=== PATIENT | female | born 1945 | race Caucasian/White ===

== ENCOUNTER 2018-10-03 14:55 | Inpatient (IN) ==
[2018-10-03] MEDS ORDERED: methylPREDNISolone SOD SUC 125 MG/2 ML VIAL IV STA (15:31)
[2018-10-03] MEDS ORDERED: ALBUTEROL 2.5 MG/3 ML NEB RESP TX STA (15:32)
[2018-10-03 15:43] LABS: Basophils % 0.3 % (0.0-0.8); Eosinophils # 0.1 10*3/uL (0.0-0.87); Eosinophils % 2.2 % (0.00-10.9); Hematocrit 37.6 VOL% (35.7-47.0); Hemoglobin 12.5 GM/DL (12.0-16.0); Immature Granulocytes Absolute 0.06 #; Lymphocytes # 1.2 10*3/uL (1.4-4.0); Lymphocytes % 20.6 % (21.3-54.2); Mean Corpuscular HGB Conc 33.2 GM/DL (32-36); Mean Corpuscular Hemoglobin 29 PG (27-34); Mean Corpuscular Volume 87.4 FL (87-102); Mean Platelet Volume 9.6 FL (9.6-12.0); Monocytes # 0.5 10*3/uL (0.11-0.8); Monocytes % 9.2 % (1.7-12.7); Neutrophils # 3.9 10*3/uL (1.4-7.4); Neutrophils % 66.7 % (38.7-73.9); Platelet Count 330 T/CUMM (130-400); Red Cell Distribution Width 15.9 % (9.3-17.3); White Blood Count 5.8 T/CUMM (4-12)
[2018-10-03 15:55] LABS: Bilirubin,Total 0.4 MG/DL (0.2-1.0); Calcium 8.4 MG/DL (8.5-10.1); Osmolality,Calculated 280.1 MOS/KG (273-304); Potassium 3.3 MMOL/L (3.5-5.1); Total Protein 6.3 G/DL (6.4-8.3)
[2018-10-03 16:17] LABS: Apearance,Urine CLEAR (Clear); Bilirubin,Urine Negative (Negative); Blood, Urine Negative (Negative); Glucose,Urine (UA) Negative (Negative); Ketones,Urine 20 mg/dL (Negative); Mucus,Urine Occasional /LPF (Occasional); Nitrite,Urine Negative (Negative); Protein,Urine 30 MG/DL; Squamous Epithelial Cell,Urine Occasional /HPF (0-10); Urine Color Yellow (Yellow); Urine Specific Gravity 1.016 (1.001-1.035); WBC,Urine 1 /HPF (0-6)
[2018-10-03 16:27] LABS: ABG Base Excess 3.4 MMOL/L (-2.5-2.5); ABG HCO3 27.5 MMOL/L (20-26); ABG PCO2 44.1 MM HG (35-48); ABG PH 7.418 (7.35-7.45); ABG TCO2 25.1 MMOL/L (23-27); Allen Test Positive
[2018-10-03] MEDS ORDERED: MEROPENEM 1,000 MG in SODIUM CHLORIDE 0.9% 100 ML IV STA (16:37)
[2018-10-03] MEDS ORDERED: VANCOMYCIN INJ 1,000 MG in SODIUM CHLORIDE 0.9% 250 ML IV STA (16:55)
[2018-10-03] MEDS ORDERED: ACETAMINOPHEN 325 MG TABLET PO PRN (17:21)
[2018-10-03] MEDS ORDERED: ONDANSETRON 4 MG/2 ML VIAL IV PRN (17:21)
[2018-10-03] MEDS ORDERED: GLUCAGON 1 MG VIAL IM PRN (18:21)
[2018-10-03] MEDS ORDERED: NITROGLYCERIN SL 0.4 MG TABLET SL PRN (18:31)
[2018-10-03] MEDS: POTASSIUM CHLORIDE 20 MEQ TABLET PO SCH ×2 (19:00→21:36)
[2018-10-03] MEDS: ALBUTEROL/IPRATROPIUM 3 ML NEB RESP TX SCH (19:16)
[2018-10-03] MEDS: BUDESONIDE 0.5 MG/2 ML NEB RESP TX SCH (19:17)
[2018-10-03] MEDS: FORMOTEROL 20 MCG/2 ML NEB RESP TX SCH (19:17)
[2018-10-03] MEDS: SODIUM CHLORIDE 0.9% 1,000 ML IV SCH (19:36)
[2018-10-03] MEDS: INSULIN LISPRO 100 UNIT/ML SUBCUT SCH (20:03)
[2018-10-03] MEDS: INSULIN GLARGINE 100 UNIT/ML SUBCUT SCH (20:03)
[2018-10-03] MEDS: CLOTRIMAZOLE/BETAMETHASONE CREAM 15 GM TUBE TOP SCH (20:12)
[2018-10-03] MEDS: OLOPATADINE 0.1% OPH SOLN 5 ML BOTTLE BOTH EYES SCH (20:12)
[2018-10-03] MEDS: LEVOFLOXACIN INJ 750 MG in PREMIX 1 EACH IV SCH (20:12)
[2018-10-03] MEDS: ALBUTEROL/IPRATROPIUM 3 ML NEB RESP TX PRN (23:12)
[2018-10-04] MEDS: oxyCODONE IR 5 MG TABLET PO SCH ×5 (00:11→17:01)
[2018-10-04] MEDS: POTASSIUM CHLORIDE 20 MEQ TABLET PO SCH ×2 (03:15→08:51)
[2018-10-04] MEDS: VANCOMYCIN INJ 1,500 MG in SODIUM CHLORIDE 0.9% 500 ML IV SCH ×2 (03:15→16:25)
[2018-10-04] MEDS ORDERED: VECURONIUM 10 MG VIAL IV ONE ×2 (03:55→04:06)
[2018-10-04] MEDS ORDERED: ETOMIDATE 20 MG/10 ML VIAL IV ONE ×2 (03:56→04:04)
[2018-10-04] MEDS ORDERED: SUCCINYLCHOLINE 200 MG/10 ML VIAL ONE (03:56)
[2018-10-04 03:59] LABS: Hematocrit 37.7 VOL% (35.7-47.0); Hemoglobin 12.1 GM/DL (12.0-16.0); Immature Granulocytes % 1.2 %; Immature Granulocytes Absolute 0.05 #; Lymphocytes # 0.3 10*3/uL (1.4-4.0); Lymphocytes % 7.6 % (21.3-54.2); Mean Corpuscular HGB Conc 32.1 GM/DL (32-36); Mean Corpuscular Hemoglobin 29 PG (27-34); Mean Corpuscular Volume 89.3 FL (87-102); Mean Platelet Volume 9.3 FL (9.6-12.0); Monocytes # 0.3 10*3/uL (0.11-0.8); Monocytes % 7.4 % (1.7-12.7); Neutrophils # 3.5 10*3/uL (1.4-7.4); Neutrophils % 83.8 % (38.7-73.9); Platelet Count 268 T/CUMM (130-400); Red Blood Count 4.22 MC/CUMM (3.8-5.5); Red Cell Distribution Width 15.8 % (9.3-17.3); White Blood Count 4.2 T/CUMM (4-12)
[2018-10-04 04:16] LABS: INR 0.9; PT Patient Result 10.1 SECS
[2018-10-04] MEDS ORDERED: PROPOFOL 1,000 MG/100 ML BOTTLE IV ONE (04:16)
[2018-10-04 04:22] LABS: Calcium 8.6 MG/DL (8.5-10.1); Osmolality,Calculated 288.3 MOS/KG (273-304); Potassium 4.6 MMOL/L (3.5-5.1)
[2018-10-04 04:34] LABS: Troponin I 0.416 NG/ML (0.00-0.045)
[2018-10-04] MEDS: SODIUM CHLORIDE 0.9% 1,000 ML IV SCH ×2 (04:38→14:36)
[2018-10-04] MEDS: PROPOFOL 1,000 MG/100 ML BOTTLE IV SCH ×4 (04:41→21:10)
[2018-10-04 04:56] LABS: Pt O2 Delivery Device Ventilator
[2018-10-04] MEDS: MEROPENEM 1,000 MG in SODIUM CHLORIDE 0.9% 100 ML IV SCH ×2 (05:47→16:25)
[2018-10-04 06:13] LABS: ABG Base Excess -3.1 MMOL/L (-2.5-2.5); ABG HCO3 21.8 MMOL/L (20-26); ABG Oxygen Saturation 97.5 % (95-100); ABG PH 7.176 (7.35-7.45); ABG TCO2 25.5 MMOL/L (23-27)
[2018-10-04 06:14] LABS: ABG PCO2 76.7 MM HG (35-48)
[2018-10-04 07:30] LABS: Pt O2 Delivery Device Ventilator
[2018-10-04 07:32] LABS: ABG Base Excess -4.3 MMOL/L (-2.5-2.5); ABG HCO3 20.8 MMOL/L (20-26); ABG Oxygen Saturation 95.1 % (95-100); ABG PO2 92.3 MM HG (80-95); ABG TCO2 23.5 MMOL/L (23-27)
[2018-10-04] MEDS: BUDESONIDE 0.5 MG/2 ML NEB RESP TX SCH ×2 (07:40→18:57)
[2018-10-04] MEDS: ALBUTEROL/IPRATROPIUM 3 ML NEB RESP TX SCH ×4 (07:40→18:57)
[2018-10-04] MEDS: FORMOTEROL 20 MCG/2 ML NEB RESP TX SCH ×2 (07:40→18:57)
[2018-10-04 07:53] LABS: ABG PH 7.189 (7.35-7.45)
[2018-10-04 08:43] LABS: ABG Base Excess -3.7 MMOL/L (-2.5-2.5); ABG HCO3 21.4 MMOL/L (20-26); ABG Oxygen Saturation 98.8 % (95-100); ABG PCO2 60.5 MM HG (35-48); ABG TCO2 22.8 MMOL/L (23-27); Pt O2 Delivery Device Ventilator
[2018-10-04] MEDS: INSULIN LISPRO 100 UNIT/ML SUBCUT SCH ×4 (08:47→23:16)
[2018-10-04] MEDS: CLOTRIMAZOLE/BETAMETHASONE CREAM 15 GM TUBE TOP SCH ×2 (08:50→20:45)
[2018-10-04] MEDS: OLOPATADINE 0.1% OPH SOLN 5 ML BOTTLE BOTH EYES SCH ×2 (08:50→20:45)
[2018-10-04] MEDS: INSULIN GLARGINE 100 UNIT/ML SUBCUT SCH ×2 (08:51→20:43)
[2018-10-04] MEDS: PANTOPRAZOLE 40 MG TABLET PO SCH (08:51)
[2018-10-04] MEDS: CALCIUM (CARBONATE)/VITAMIN D 600 MG-400 UNIT TABLET PO SCH (08:51)
[2018-10-04] MEDS: ASPIRIN EC 81 MG TABLET PO SCH (08:51)
[2018-10-04] MEDS: methylPREDNISolone SOD SUC 40 MG/1 ML VIAL IV SCH ×2 (12:33→22:32)
[2018-10-04] MEDS: LEVOFLOXACIN INJ 750 MG in PREMIX 1 EACH IV SCH (20:44)
[2018-10-05] MEDS: oxyCODONE IR 5 MG TABLET PO SCH ×2 (00:53→06:25)
[2018-10-05] MEDS: SODIUM CHLORIDE 0.9% 1,000 ML IV SCH ×2 (00:53→17:42)
[2018-10-05] MEDS: PROPOFOL 1,000 MG/100 ML BOTTLE IV SCH ×7 (03:22→23:05)
[2018-10-05] MEDS: VANCOMYCIN INJ 1,500 MG in SODIUM CHLORIDE 0.9% 500 ML IV SCH (03:25)
[2018-10-05 03:57] LABS: ABG Base Excess -0.9 MMOL/L (-2.5-2.5); ABG HCO3 23.7 MMOL/L (20-26); ABG Oxygen Saturation 98.9 % (95-100); ABG PCO2 47.6 MM HG (35-48); ABG PH 7.335 (7.35-7.45); ABG TCO2 22.7 MMOL/L (23-27); Allen Test Positive; Pt O2 Delivery Device Ventilator
[2018-10-05 04:34] LABS: Basophils % 0.2 % (0.0-0.8); Hematocrit 37.2 VOL% (35.7-47.0); Hemoglobin 11.4 GM/DL (12.0-16.0); Immature Granulocytes % 1.3 %; Immature Granulocytes Absolute 0.07 #; Lymphocytes # 0.4 10*3/uL (1.4-4.0); Lymphocytes % 7.4 % (21.3-54.2); Mean Corpuscular HGB Conc 30.6 GM/DL (32-36); Mean Corpuscular Hemoglobin 28 PG (27-34); Mean Corpuscular Volume 92.1 FL (87-102); Monocytes # 0.4 10*3/uL (0.11-0.8); Monocytes % 8.3 % (1.7-12.7); Neutrophils # 4.4 10*3/uL (1.4-7.4); Neutrophils % 82.8 % (38.7-73.9); Platelet Count 232 T/CUMM (130-400); Red Blood Count 4.04 MC/CUMM (3.8-5.5); Red Cell Distribution Width 16.6 % (9.3-17.3); White Blood Count 5.3 T/CUMM (4-12)
[2018-10-05 04:49] LABS: Calcium 8.5 MG/DL (8.5-10.1); Osmolality,Calculated 295.8 MOS/KG (273-304); Potassium 4.7 MMOL/L (3.5-5.1)
[2018-10-05] MEDS: INSULIN LISPRO 100 UNIT/ML SUBCUT SCH ×3 (05:47→18:23)
[2018-10-05] MEDS: MEROPENEM 1,000 MG in SODIUM CHLORIDE 0.9% 100 ML IV SCH (05:57)
[2018-10-05] MEDS: ALBUTEROL/IPRATROPIUM 3 ML NEB RESP TX SCH ×4 (07:10→19:19)
[2018-10-05] MEDS: BUDESONIDE 0.5 MG/2 ML NEB RESP TX SCH ×2 (07:10→19:20)
[2018-10-05] MEDS: FORMOTEROL 20 MCG/2 ML NEB RESP TX SCH ×2 (07:10→19:19)
[2018-10-05] MEDS: POTASSIUM CHLORIDE 20 MEQ TABLET PO SCH (08:03)
[2018-10-05] MEDS: INSULIN GLARGINE 100 UNIT/ML SUBCUT SCH (08:03)
[2018-10-05] MEDS: CALCIUM (CARBONATE)/VITAMIN D 600 MG-400 UNIT TABLET PO SCH (08:03)
[2018-10-05] MEDS: CLOTRIMAZOLE/BETAMETHASONE CREAM 15 GM TUBE TOP SCH ×2 (08:07→21:08)
[2018-10-05] MEDS: OLOPATADINE 0.1% OPH SOLN 5 ML BOTTLE BOTH EYES SCH ×2 (08:07→23:05)
[2018-10-05] MEDS: ASPIRIN EC 81 MG TABLET PO SCH (09:14)
[2018-10-05] MEDS: PANTOPRAZOLE 40 MG TABLET PO SCH (09:14)
[2018-10-05] MEDS: HYDROmorphone 2 MG/1 ML VIAL IV PRN (09:56)
[2018-10-05] MEDS: methylPREDNISolone SOD SUC 40 MG/1 ML VIAL IV SCH ×2 (11:27→23:30)
[2018-10-05] MEDS ORDERED: INSULIN GLARGINE 100 UNIT/ML SUBCUT SCH ×2 (17:25→17:31)
[2018-10-05] MEDS: FUROSEMIDE 40 MG/4 ML VIAL IV SCH (18:00)
[2018-10-05] MEDS: LEVOFLOXACIN INJ 750 MG in PREMIX 1 EACH IV SCH (21:07)
[2018-10-06] MEDS ORDERED: VANCOMYCIN INJ 1,500 MG in SODIUM CHLORIDE 0.9% 500 ML IV SCH
[2018-10-06] MEDS: INSULIN LISPRO 100 UNIT/ML SUBCUT SCH ×4 (00:03→18:36)
[2018-10-06] MEDS: PROPOFOL 1,000 MG/100 ML BOTTLE IV SCH ×7 (02:51→21:19)
[2018-10-06 04:38] LABS: ABG Base Excess 1.2 MMOL/L (-2.5-2.5); ABG HCO3 27.3 MMOL/L (20-26); ABG Oxygen Saturation 98.5 % (95-100); ABG PCO2 49.8 MM HG (35-48); ABG PH 7.357 (7.35-7.45); ABG PO2 143.4 MM HG (80-95); ABG TCO2 28.8 MMOL/L (23-27); Allen Test Positive; Pt O2 Delivery Device Ventilator
[2018-10-06 05:05] LABS: Calcium 8.4 MG/DL (8.5-10.1); Osmolality,Calculated 305.7 MOS/KG (273-304); Potassium 4.6 MMOL/L (3.5-5.1)
[2018-10-06 05:29] LABS: Basophils % 0.1 % (0.0-0.8); Hematocrit 37.2 VOL% (35.7-47.0); Hemoglobin 11.7 GM/DL (12.0-16.0); Immature Granulocytes % 1.5 %; Immature Granulocytes Absolute 0.12 #; Lymphocytes # 0.3 10*3/uL (1.4-4.0); Lymphocytes % 4.2 % (21.3-54.2); Mean Corpuscular HGB Conc 31.5 GM/DL (32-36); Mean Corpuscular Hemoglobin 29 PG (27-34); Mean Corpuscular Volume 92.1 FL (87-102); Monocytes # 0.7 10*3/uL (0.11-0.8); Monocytes % 9.1 % (1.7-12.7); NRBC # 0.02 10*3/uL; Neutrophils % 85.1 % (38.7-73.9); Platelet Count 298 T/CUMM (130-400); Red Blood Count 4.04 MC/CUMM (3.8-5.5); Red Cell Distribution Width 16.8 % (9.3-17.3); White Blood Count 8.2 T/CUMM (4-12)
[2018-10-06 05:48] LABS: Lymphocytes 9 % (20-55); Platelet Estimate Normal; Segmented Neutrophils 88 % (50-85); Total Cells Counted 100
[2018-10-06 05:49] LABS: Polychromasia Few
[2018-10-06] MEDS: ALBUTEROL/IPRATROPIUM 3 ML NEB RESP TX SCH ×4 (07:24→18:59)
[2018-10-06] MEDS: BUDESONIDE 0.5 MG/2 ML NEB RESP TX SCH ×2 (07:24→19:00)
[2018-10-06] MEDS: FORMOTEROL 20 MCG/2 ML NEB RESP TX SCH ×2 (07:34→18:59)
[2018-10-06] MEDS: FUROSEMIDE 40 MG/4 ML VIAL IV SCH ×2 (09:26→16:06)
[2018-10-06] MEDS: ASPIRIN CHEW 81 MG TABLET PO SCH (09:27)
[2018-10-06] MEDS: CALCIUM (CARBONATE)/VITAMIN D 600 MG-400 UNIT TABLET PO SCH (09:27)
[2018-10-06] MEDS: LANSOPRAZOLE ODT 30 MG TABLET NG SCH (09:27)
[2018-10-06] MEDS: CLOTRIMAZOLE/BETAMETHASONE CREAM 15 GM TUBE TOP SCH ×2 (09:27→21:45)
[2018-10-06] MEDS: OLOPATADINE 0.1% OPH SOLN 5 ML BOTTLE BOTH EYES SCH ×2 (09:27→22:03)
[2018-10-06] MEDS: POTASSIUM CHLORIDE 20 MEQ TABLET PO SCH (09:27)
[2018-10-06] MEDS: methylPREDNISolone SOD SUC 40 MG/1 ML VIAL IV SCH ×2 (11:13→23:17)
[2018-10-06] MEDS: BISACODYL 10 MG SUPP RECTAL SCH (11:13)
[2018-10-06] MEDS ORDERED: INSULIN GLARGINE 100 UNIT/ML SUBCUT SCH ×2 (12:28→12:30)
[2018-10-06] MEDS: METOCLOPRAMIDE 10 MG/2 ML VIAL IV SCH ×2 (12:46→18:36)
[2018-10-06] MEDS: LEVOFLOXACIN INJ 750 MG in PREMIX 1 EACH IV SCH (21:44)
[2018-10-07] MEDS: INSULIN LISPRO 100 UNIT/ML SUBCUT SCH ×4 (00:09→18:15)
[2018-10-07] MEDS: METOCLOPRAMIDE 10 MG/2 ML VIAL IV SCH ×4 (00:10→18:15)
[2018-10-07] MEDS: PROPOFOL 1,000 MG/100 ML BOTTLE IV SCH ×6 (01:17→21:56)
[2018-10-07 03:22] LABS: Allen Test Positive; Pt O2 Delivery Device Ventilator
[2018-10-07 03:23] LABS: ABG Base Excess 9.1 MMOL/L (-2.5-2.5); ABG HCO3 32.9 MMOL/L (20-26); ABG Oxygen Saturation 99.4 % (95-100); ABG PCO2 49.6 MM HG (35-48); ABG PH 7.452 (7.35-7.45); ABG TCO2 30.6 MMOL/L (23-27)
[2018-10-07 05:21] LABS: Basophils % 0.3 % (0.0-0.8); Eosinophils % 0.1 % (0.00-10.9); Hematocrit 36.7 VOL% (35.7-47.0); Hemoglobin 11.4 GM/DL (12.0-16.0); Immature Granulocytes % 2.3 %; Immature Granulocytes Absolute 0.17 #; Lymphocytes # 0.4 10*3/uL (1.4-4.0); Lymphocytes % 5.3 % (21.3-54.2); Mean Corpuscular HGB Conc 31.1 GM/DL (32-36); Mean Corpuscular Hemoglobin 28 PG (27-34); Mean Corpuscular Volume 90.8 FL (87-102); Mean Platelet Volume 10.1 FL (9.6-12.0); Monocytes # 0.5 10*3/uL (0.11-0.8); Neutrophils # 6.2 10*3/uL (1.4-7.4); Platelet Count 278 T/CUMM (130-400); Red Blood Count 4.04 MC/CUMM (3.8-5.5); Red Cell Distribution Width 16.6 % (9.3-17.3); White Blood Count 7.3 T/CUMM (4-12)
[2018-10-07 05:52] LABS: Calcium 8.7 MG/DL (8.5-10.1); Osmolality,Calculated 302.7 MOS/KG (273-304); Potassium 4.8 MMOL/L (3.5-5.1)
[2018-10-07] MEDS: BUDESONIDE 0.5 MG/2 ML NEB RESP TX SCH ×2 (07:01→20:19)
[2018-10-07] MEDS: FORMOTEROL 20 MCG/2 ML NEB RESP TX SCH ×2 (07:01→20:18)
[2018-10-07] MEDS: ALBUTEROL/IPRATROPIUM 3 ML NEB RESP TX SCH ×4 (07:02→20:19)
[2018-10-07] MEDS ORDERED: FUROSEMIDE 20 MG/2 ML VIAL ONE (07:27)
[2018-10-07] MEDS: FUROSEMIDE 40 MG/4 ML VIAL IV SCH (07:31)
[2018-10-07] MEDS: LANSOPRAZOLE ODT 30 MG TABLET NG SCH (09:27)
[2018-10-07] MEDS: ASPIRIN CHEW 81 MG TABLET PO SCH (09:27)
[2018-10-07] MEDS: CALCIUM (CARBONATE)/VITAMIN D 600 MG-400 UNIT TABLET PO SCH (09:27)
[2018-10-07] MEDS: BISACODYL 10 MG SUPP RECTAL SCH (09:28)
[2018-10-07] MEDS: POTASSIUM CHLORIDE 20 MEQ TABLET PO SCH (09:28)
[2018-10-07] MEDS: CLOTRIMAZOLE/BETAMETHASONE CREAM 15 GM TUBE TOP SCH ×2 (09:28→20:31)
[2018-10-07] MEDS: OLOPATADINE 0.1% OPH SOLN 5 ML BOTTLE BOTH EYES SCH ×2 (09:28→20:31)
[2018-10-07] MEDS: POTASSIUM CHLORIDE 20 MEQ/15 ML UDCUP PO SCH (09:29)
[2018-10-07] MEDS: methylPREDNISolone SOD SUC 40 MG/1 ML VIAL IV SCH ×2 (12:01→22:49)
[2018-10-07] MEDS: FUROSEMIDE 20 MG/2 ML VIAL IV SCH (15:55)
[2018-10-07] MEDS: INSULIN GLARGINE 100 UNIT/ML SUBCUT SCH (20:30)
[2018-10-07] MEDS: LEVOFLOXACIN INJ 750 MG in PREMIX 1 EACH IV SCH (20:31)
[2018-10-08] MEDS: INSULIN LISPRO 100 UNIT/ML SUBCUT SCH ×4 (00:28→18:14)
[2018-10-08] MEDS: METOCLOPRAMIDE 10 MG/2 ML VIAL IV SCH ×4 (00:29→17:05)
[2018-10-08] MEDS: PROPOFOL 1,000 MG/100 ML BOTTLE IV SCH ×6 (02:34→20:22)
[2018-10-08 04:14] LABS: ABG Base Excess 12.5 MMOL/L (-2.5-2.5); ABG HCO3 36.3 MMOL/L (20-26); ABG PCO2 58.6 MM HG (35-48); ABG PH 7.437 (7.35-7.45); ABG TCO2 34.6 MMOL/L (23-27); Pt O2 Delivery Device Ventilator
[2018-10-08 05:36] LABS: Basophils % 0.2 % (0.0-0.8); Eosinophils # 0.1 10*3/uL (0.0-0.87); Eosinophils % 0.7 % (0.00-10.9); Hematocrit 40.1 VOL% (35.7-47.0); Hemoglobin 12.3 GM/DL (12.0-16.0); Immature Granulocytes % 2.4 %; Immature Granulocytes Absolute 0.21 #; Lymphocytes # 0.4 10*3/uL (1.4-4.0); Lymphocytes % 4.6 % (21.3-54.2); Mean Corpuscular HGB Conc 30.7 GM/DL (32-36); Mean Corpuscular Hemoglobin 29 PG (27-34); Mean Platelet Volume 10.2 FL (9.6-12.0); Monocytes # 0.5 10*3/uL (0.11-0.8); Monocytes % 5.8 % (1.7-12.7); Neutrophils # 7.7 10*3/uL (1.4-7.4); Neutrophils % 86.3 % (38.7-73.9); Platelet Count 278 T/CUMM (130-400); Red Blood Count 4.31 MC/CUMM (3.8-5.5); Red Cell Distribution Width 16.5 % (9.3-17.3); White Blood Count 8.9 T/CUMM (4-12)
[2018-10-08 05:38] LABS: Calcium 8.7 MG/DL (8.5-10.1); Osmolality,Calculated 300.7 MOS/KG (273-304); Potassium 4.9 MMOL/L (3.5-5.1)
[2018-10-08 06:47] LABS: Anisocytosis Slight; Band Neutrophils 2 % (0-10); Eosinophils 1 % (0-10); Lymphocytes 4 % (20-55); Macrocytosis Slight; Platelet Estimate Normal; Segmented Neutrophils 90 % (50-85); Total Cells Counted 100
[2018-10-08] MEDS: ALBUTEROL/IPRATROPIUM 3 ML NEB RESP TX SCH ×4 (07:58→20:32)
[2018-10-08] MEDS: BUDESONIDE 0.5 MG/2 ML NEB RESP TX SCH ×2 (07:58→20:34)
[2018-10-08] MEDS: FORMOTEROL 20 MCG/2 ML NEB RESP TX SCH ×2 (07:58→20:34)
[2018-10-08] MEDS: ASPIRIN CHEW 81 MG TABLET PO SCH (09:05)
[2018-10-08] MEDS: INSULIN GLARGINE 100 UNIT/ML SUBCUT SCH ×2 (09:05→20:19)
[2018-10-08] MEDS: CALCIUM (CARBONATE)/VITAMIN D 600 MG-400 UNIT TABLET PO SCH (09:05)
[2018-10-08] MEDS: LANSOPRAZOLE ODT 30 MG TABLET NG SCH (09:05)
[2018-10-08] MEDS: FUROSEMIDE 20 MG/2 ML VIAL IV SCH (09:06)
[2018-10-08] MEDS: BISACODYL 10 MG SUPP RECTAL SCH (09:06)
[2018-10-08] MEDS: HYDROmorphone 2 MG/1 ML VIAL IV PRN (09:09)
[2018-10-08] MEDS: CLOTRIMAZOLE/BETAMETHASONE CREAM 15 GM TUBE TOP SCH ×2 (09:10→20:20)
[2018-10-08] MEDS: OLOPATADINE 0.1% OPH SOLN 5 ML BOTTLE BOTH EYES SCH ×2 (09:10→20:20)
[2018-10-08] MEDS: POTASSIUM CHLORIDE 20 MEQ/15 ML UDCUP PO SCH (09:18)
[2018-10-08] MEDS ORDERED: MAGNESIUM CITRATE 300 ML BOTTLE PO ONE (09:23)
[2018-10-08] MEDS: methylPREDNISolone SOD SUC 40 MG/1 ML VIAL IV SCH (12:08)
[2018-10-08] MEDS: ENOXAPARIN 40 MG/0.4 ML SYRINGE SUBCUT SCH (15:57)
[2018-10-08] MEDS: ACYCLOVIR INJ 500 MG in SODIUM CHLORIDE 0.9% 100 ML IV SCH (17:05)
[2018-10-08] MEDS: LEVOFLOXACIN INJ 750 MG in PREMIX 1 EACH IV SCH (20:20)
[2018-10-09] MEDS: methylPREDNISolone SOD SUC 40 MG/1 ML VIAL IV SCH ×3 (00:40→23:01)
[2018-10-09] MEDS: METOCLOPRAMIDE 10 MG/2 ML VIAL IV SCH ×5 (00:45→23:02)
[2018-10-09] MEDS: PROPOFOL 1,000 MG/100 ML BOTTLE IV SCH ×7 (00:46→23:01)
[2018-10-09] MEDS: INSULIN LISPRO 100 UNIT/ML SUBCUT SCH ×5 (00:46→23:57)
[2018-10-09] MEDS: ACYCLOVIR INJ 500 MG in SODIUM CHLORIDE 0.9% 100 ML IV SCH ×3 (02:34→17:28)
[2018-10-09 03:32] LABS: Basophils % 0.3 % (0.0-0.8); Eosinophils # 0.1 10*3/uL (0.0-0.87); Eosinophils % 1.3 % (0.00-10.9); Hematocrit 39.6 VOL% (35.7-47.0); Hemoglobin 11.9 GM/DL (12.0-16.0); Immature Granulocytes Absolute 0.19 #; Lymphocytes # 0.4 10*3/uL (1.4-4.0); Lymphocytes % 4.3 % (21.3-54.2); Mean Corpuscular HGB Conc 30.1 GM/DL (32-36); Mean Corpuscular Hemoglobin 28 PG (27-34); Mean Corpuscular Volume 94.5 FL (87-102); Mean Platelet Volume 10.5 FL (9.6-12.0); Monocytes # 0.5 10*3/uL (0.11-0.8); Monocytes % 5.5 % (1.7-12.7); Neutrophils # 8.1 10*3/uL (1.4-7.4); Neutrophils % 86.6 % (38.7-73.9); Platelet Count 280 T/CUMM (130-400); Red Blood Count 4.19 MC/CUMM (3.8-5.5); Red Cell Distribution Width 16.5 % (9.3-17.3); White Blood Count 9.4 T/CUMM (4-12)
[2018-10-09 04:01] LABS: Calcium 9.3 MG/DL (8.5-10.1); Osmolality,Calculated 298.7 MOS/KG (273-304); Potassium 3.9 MMOL/L (3.5-5.1)
[2018-10-09 04:16] LABS: Lymphocytes 5 % (20-55); Platelet Estimate Adequate; Polychromasia Few; Segmented Neutrophils 94 % (50-85); Total Cells Counted 100
[2018-10-09 05:18] LABS: ABG Base Excess 9.5 MMOL/L (-2.5-2.5); ABG HCO3 33.2 MMOL/L (20-26); ABG PCO2 62.5 MM HG (35-48); ABG PH 7.382 (7.35-7.45); ABG TCO2 32.9 MMOL/L (23-27); Allen Test Positive; Pt O2 Delivery Device Ventilator
[2018-10-09] MEDS: BUDESONIDE 0.5 MG/2 ML NEB RESP TX SCH ×2 (07:26→19:54)
[2018-10-09] MEDS: ALBUTEROL/IPRATROPIUM 3 ML NEB RESP TX SCH ×4 (07:26→19:54)
[2018-10-09] MEDS: FORMOTEROL 20 MCG/2 ML NEB RESP TX SCH ×2 (07:36→19:54)
[2018-10-09] MEDS: LANSOPRAZOLE ODT 30 MG TABLET NG SCH (08:00)
[2018-10-09] MEDS: ASPIRIN CHEW 81 MG TABLET PO SCH (08:00)
[2018-10-09] MEDS: CALCIUM (CARBONATE)/VITAMIN D 600 MG-400 UNIT TABLET PO SCH (08:00)
[2018-10-09] MEDS: CLOTRIMAZOLE/BETAMETHASONE CREAM 15 GM TUBE TOP SCH ×2 (08:01→23:00)
[2018-10-09] MEDS: INSULIN GLARGINE 100 UNIT/ML SUBCUT SCH ×2 (08:01→22:44)
[2018-10-09] MEDS: OLOPATADINE 0.1% OPH SOLN 5 ML BOTTLE BOTH EYES SCH ×2 (08:01→23:00)
[2018-10-09] MEDS: BISACODYL 10 MG SUPP RECTAL SCH (08:01)
[2018-10-09] MEDS: POTASSIUM CHLORIDE 20 MEQ/15 ML UDCUP PER TUBE PRN (09:29)
[2018-10-09] MEDS: METOPROLOL TARTRATE 25 MG TABLET PER TUBE SCH ×2 (09:29→22:58)
[2018-10-09] MEDS: HYDROmorphone 2 MG/1 ML VIAL IV PRN (09:33)
[2018-10-09] MEDS: ENOXAPARIN 40 MG/0.4 ML SYRINGE SUBCUT SCH (17:28)
[2018-10-09] MEDS: LEVOFLOXACIN INJ 750 MG in PREMIX 1 EACH IV SCH (22:59)
[2018-10-10] MEDS: PROPOFOL 1,000 MG/100 ML BOTTLE IV SCH ×6 (02:36→20:36)
[2018-10-10] MEDS: ACYCLOVIR INJ 500 MG in SODIUM CHLORIDE 0.9% 100 ML IV SCH ×3 (02:37→17:05)
[2018-10-10 02:54] LABS: Calcium 9.5 MG/DL (8.5-10.1); Osmolality,Calculated 305.8 MOS/KG (273-304); Potassium 3.9 MMOL/L (3.5-5.1)
[2018-10-10 03:08] LABS: Basophils % 0.2 % (0.0-0.8); Eosinophils # 0.1 10*3/uL (0.0-0.87); Eosinophils % 0.8 % (0.00-10.9); Hematocrit 38.7 VOL% (35.7-47.0); Hemoglobin 11.9 GM/DL (12.0-16.0); Immature Granulocytes % 1.8 %; Immature Granulocytes Absolute 0.18 #; Lymphocytes # 0.4 10*3/uL (1.4-4.0); Lymphocytes % 3.4 % (21.3-54.2); Mean Corpuscular HGB Conc 30.7 GM/DL (32-36); Mean Corpuscular Hemoglobin 29 PG (27-34); Mean Corpuscular Volume 95.1 FL (87-102); Mean Platelet Volume 11.4 FL (9.6-12.0); Monocytes # 0.5 10*3/uL (0.11-0.8); Monocytes % 5.1 % (1.7-12.7); Neutrophils # 9.1 10*3/uL (1.4-7.4); Neutrophils % 88.7 % (38.7-73.9); Platelet Count 186 T/CUMM (130-400); Red Blood Count 4.07 MC/CUMM (3.8-5.5); Red Cell Distribution Width 16.3 % (9.3-17.3); White Blood Count 10.3 T/CUMM (4-12)
[2018-10-10 03:45] LABS: Lymphocytes 4 % (20-55); Platelet Estimate Decreased; Polychromasia Few; Segmented Neutrophils 94 % (50-85); Total Cells Counted 100
[2018-10-10 04:54] LABS: Allen Test Positive; Pt O2 Delivery Device Ventilator
[2018-10-10 04:55] LABS: ABG Base Excess 4.3 MMOL/L (-2.5-2.5); ABG HCO3 28.3 MMOL/L (20-26); ABG Oxygen Saturation 95.8 % (95-100); ABG PCO2 60.6 MM HG (35-48); ABG PH 7.332 (7.35-7.45); ABG TCO2 28.6 MMOL/L (23-27)
[2018-10-10] MEDS: METOCLOPRAMIDE 10 MG/2 ML VIAL IV SCH ×4 (06:10→23:05)
[2018-10-10] MEDS: INSULIN LISPRO 100 UNIT/ML SUBCUT SCH ×3 (06:15→17:02)
[2018-10-10] MEDS: ASPIRIN CHEW 81 MG TABLET PO SCH (07:59)
[2018-10-10] MEDS: CALCIUM (CARBONATE)/VITAMIN D 600 MG-400 UNIT TABLET PO SCH (07:59)
[2018-10-10] MEDS: METOPROLOL TARTRATE 25 MG TABLET PER TUBE SCH ×2 (07:59→21:08)
[2018-10-10] MEDS: LANSOPRAZOLE ODT 30 MG TABLET NG SCH (07:59)
[2018-10-10] MEDS: INSULIN GLARGINE 100 UNIT/ML SUBCUT SCH ×2 (07:59→21:05)
[2018-10-10] MEDS: BISACODYL 10 MG SUPP RECTAL SCH (08:02)
[2018-10-10] MEDS: POTASSIUM CHLORIDE 20 MEQ/15 ML UDCUP PER TUBE PRN (08:02)
[2018-10-10] MEDS: CLOTRIMAZOLE/BETAMETHASONE CREAM 15 GM TUBE TOP SCH ×2 (08:02→21:08)
[2018-10-10] MEDS: OLOPATADINE 0.1% OPH SOLN 5 ML BOTTLE BOTH EYES SCH ×2 (08:02→21:08)
[2018-10-10] MEDS: ALBUTEROL/IPRATROPIUM 3 ML NEB RESP TX SCH ×4 (08:02→19:14)
[2018-10-10] MEDS: BUDESONIDE 0.5 MG/2 ML NEB RESP TX SCH ×2 (08:02→19:14)
[2018-10-10] MEDS: FORMOTEROL 20 MCG/2 ML NEB RESP TX SCH ×2 (08:12→19:14)
[2018-10-10] MEDS: methylPREDNISolone SOD SUC 40 MG/1 ML VIAL IV SCH ×2 (11:07→23:05)
[2018-10-10] MEDS: ENOXAPARIN 40 MG/0.4 ML SYRINGE SUBCUT SCH (16:40)
[2018-10-10] MEDS: HYDROmorphone 2 MG/1 ML VIAL IV PRN (16:42)
[2018-10-10] MEDS: LEVOFLOXACIN INJ 750 MG in PREMIX 1 EACH IV SCH (21:05)
[2018-10-11] MEDS: ACYCLOVIR INJ 500 MG in SODIUM CHLORIDE 0.9% 100 ML IV SCH ×3 (01:05→17:10)
[2018-10-11] MEDS: PROPOFOL 1,000 MG/100 ML BOTTLE IV SCH ×5 (01:06→18:03)
[2018-10-11 04:07] LABS: Basophils % 0.2 % (0.0-0.8); Eosinophils # 0.2 10*3/uL (0.0-0.87); Eosinophils % 1.9 % (0.00-10.9); Hematocrit 37.8 VOL% (35.7-47.0); Hemoglobin 11.3 GM/DL (12.0-16.0); Immature Granulocytes Absolute 0.23 #; Lymphocytes # 0.5 10*3/uL (1.4-4.0); Mean Corpuscular HGB Conc 29.9 GM/DL (32-36); Mean Corpuscular Hemoglobin 29 PG (27-34); Mean Corpuscular Volume 95.2 FL (87-102); Mean Platelet Volume 10.6 FL (9.6-12.0); Monocytes # 0.8 10*3/uL (0.11-0.8); Monocytes % 7.3 % (1.7-12.7); Neutrophils # 9.5 10*3/uL (1.4-7.4); Neutrophils % 84.6 % (38.7-73.9); Platelet Count 295 T/CUMM (130-400); Red Blood Count 3.97 MC/CUMM (3.8-5.5); Red Cell Distribution Width 15.9 % (9.3-17.3); White Blood Count 11.3 T/CUMM (4-12)
[2018-10-11 04:17] LABS: Calcium 9.6 MG/DL (8.5-10.1); Osmolality,Calculated 305.4 MOS/KG (273-304); Potassium 4.1 MMOL/L (3.5-5.1)
[2018-10-11 04:35] LABS: Eosinophils 1 % (0-10); Lymphocytes 6 % (20-55); Metamyelocytes 1 %; Segmented Neutrophils 86 % (50-85); Total Cells Counted 100
[2018-10-11 04:37] LABS: Giant Platelets Few; Hypochromasia 1+; Platelet Estimate Normal
[2018-10-11 04:52] LABS: ABG HCO3 31.7 MMOL/L (20-26); ABG Oxygen Saturation 95.4 % (95-100); ABG PCO2 61.1 MM HG (35-48); ABG PH 7.333 (7.35-7.45); ABG PO2 88.5 MM HG (80-95); ABG TCO2 33.6 MMOL/L (23-27); Allen Test Positive; Pt O2 Delivery Device Ventilator
[2018-10-11] MEDS: METOCLOPRAMIDE 10 MG/2 ML VIAL IV SCH ×4 (05:05→23:29)
[2018-10-11] MEDS: INSULIN LISPRO 100 UNIT/ML SUBCUT SCH ×5 (05:41→23:45)
[2018-10-11] MEDS: BUDESONIDE 0.5 MG/2 ML NEB RESP TX SCH ×2 (08:13→18:55)
[2018-10-11] MEDS: ALBUTEROL/IPRATROPIUM 3 ML NEB RESP TX SCH ×4 (08:13→18:56)
[2018-10-11] MEDS: FORMOTEROL 20 MCG/2 ML NEB RESP TX SCH ×2 (08:13→18:55)
[2018-10-11] MEDS: METOPROLOL TARTRATE 25 MG TABLET PER TUBE SCH ×2 (08:15→20:57)
[2018-10-11] MEDS: LANSOPRAZOLE ODT 30 MG TABLET NG SCH (08:15)
[2018-10-11] MEDS: CALCIUM (CARBONATE)/VITAMIN D 600 MG-400 UNIT TABLET PO SCH (08:15)
[2018-10-11] MEDS: clonazePAM 0.5 MG TABLET PO PRN (08:15)
[2018-10-11] MEDS: CLOTRIMAZOLE/BETAMETHASONE CREAM 15 GM TUBE TOP SCH ×2 (08:16→20:57)
[2018-10-11] MEDS: ASPIRIN CHEW 81 MG TABLET PO SCH (08:16)
[2018-10-11] MEDS: BISACODYL 10 MG SUPP RECTAL SCH (08:16)
[2018-10-11] MEDS: INSULIN GLARGINE 100 UNIT/ML SUBCUT SCH ×2 (08:16→20:56)
[2018-10-11] MEDS: HYDROmorphone 2 MG/1 ML VIAL IV PRN ×2 (08:16→23:26)
[2018-10-11] MEDS: OLOPATADINE 0.1% OPH SOLN 5 ML BOTTLE BOTH EYES SCH ×2 (08:16→20:57)
[2018-10-11] MEDS: methylPREDNISolone SOD SUC 40 MG/1 ML VIAL IV SCH ×2 (11:15→23:43)
[2018-10-11] MEDS: ENOXAPARIN 40 MG/0.4 ML SYRINGE SUBCUT SCH (17:00)
[2018-10-11] MEDS: LEVOFLOXACIN INJ 750 MG in PREMIX 1 EACH IV SCH (20:58)
[2018-10-12] MEDS: ACYCLOVIR INJ 500 MG in SODIUM CHLORIDE 0.9% 100 ML IV SCH ×3 (02:17→17:58)
[2018-10-12] MEDS: PROPOFOL 1,000 MG/100 ML BOTTLE IV SCH ×5 (02:17→23:42)
[2018-10-12] MEDS: INSULIN LISPRO 100 UNIT/ML SUBCUT SCH ×4 (06:13→23:31)
[2018-10-12] MEDS: METOCLOPRAMIDE 10 MG/2 ML VIAL IV SCH ×4 (06:14→23:31)
[2018-10-12 06:41] LABS: ABG Base Excess 3.3 MMOL/L (-2.5-2.5); ABG HCO3 27.4 MMOL/L (20-26); ABG Oxygen Saturation 98.1 % (95-100); ABG PCO2 59.1 MM HG (35-48); ABG PH 7.326 (7.35-7.45); ABG TCO2 27.8 MMOL/L (23-27)
[2018-10-12] MEDS: METOPROLOL TARTRATE 25 MG TABLET PER TUBE SCH ×2 (08:54→22:02)
[2018-10-12] MEDS: INSULIN GLARGINE 100 UNIT/ML SUBCUT SCH ×2 (08:54→20:37)
[2018-10-12] MEDS: ASPIRIN CHEW 81 MG TABLET PO SCH (08:55)
[2018-10-12] MEDS: CLOTRIMAZOLE/BETAMETHASONE CREAM 15 GM TUBE TOP SCH ×2 (08:55→20:38)
[2018-10-12] MEDS: LANSOPRAZOLE ODT 30 MG TABLET NG SCH (08:55)
[2018-10-12] MEDS: CALCIUM (CARBONATE)/VITAMIN D 600 MG-400 UNIT TABLET PO SCH (08:55)
[2018-10-12] MEDS: BISACODYL 10 MG SUPP RECTAL SCH (08:55)
[2018-10-12] MEDS: OLOPATADINE 0.1% OPH SOLN 5 ML BOTTLE BOTH EYES SCH ×2 (08:55→20:38)
[2018-10-12] MEDS: ALBUTEROL/IPRATROPIUM 3 ML NEB RESP TX SCH ×4 (09:45→19:30)
[2018-10-12] MEDS: FORMOTEROL 20 MCG/2 ML NEB RESP TX SCH ×2 (09:45→19:30)
[2018-10-12] MEDS: BUDESONIDE 0.5 MG/2 ML NEB RESP TX SCH ×2 (09:45→19:30)
[2018-10-12] MEDS: methylPREDNISolone SOD SUC 40 MG/1 ML VIAL IV SCH ×2 (11:02→22:02)
[2018-10-12] MEDS: ENOXAPARIN 40 MG/0.4 ML SYRINGE SUBCUT SCH (16:23)
[2018-10-12] MEDS: LEVOFLOXACIN INJ 750 MG in PREMIX 1 EACH IV SCH (20:37)
[2018-10-13] MEDS: ACYCLOVIR INJ 500 MG in SODIUM CHLORIDE 0.9% 100 ML IV SCH ×3 (02:24→17:17)
[2018-10-13] MEDS: PROPOFOL 1,000 MG/100 ML BOTTLE IV SCH ×6 (03:26→21:15)
[2018-10-13 04:36] LABS: ABG Base Excess 2.8 MMOL/L (-2.5-2.5); ABG HCO3 26.8 MMOL/L (20-26); ABG Oxygen Saturation 93.2 % (95-100); ABG PCO2 60.9 MM HG (35-48); ABG PH 7.309 (7.35-7.45); ABG PO2 70.4 MM HG (80-95); ABG TCO2 27.7 MMOL/L (23-27); Allen Test Positive; Pt O2 Delivery Device Ventilator
[2018-10-13] MEDS: INSULIN LISPRO 100 UNIT/ML SUBCUT SCH ×4 (06:17→23:33)
[2018-10-13] MEDS: METOCLOPRAMIDE 10 MG/2 ML VIAL IV SCH ×4 (06:18→23:33)
[2018-10-13] MEDS: FORMOTEROL 20 MCG/2 ML NEB RESP TX SCH ×2 (07:49→19:31)
[2018-10-13] MEDS: BUDESONIDE 0.5 MG/2 ML NEB RESP TX SCH ×2 (07:49→19:31)
[2018-10-13] MEDS: ALBUTEROL/IPRATROPIUM 3 ML NEB RESP TX PRN (07:49)
[2018-10-13] MEDS: clonazePAM 0.5 MG TABLET PO PRN (09:19)
[2018-10-13] MEDS: METOPROLOL TARTRATE 25 MG TABLET PER TUBE SCH ×3 (09:19→21:25)
[2018-10-13] MEDS: INSULIN GLARGINE 100 UNIT/ML SUBCUT SCH ×2 (09:19→21:14)
[2018-10-13] MEDS: CALCIUM (CARBONATE)/VITAMIN D 600 MG-400 UNIT TABLET PO SCH (09:19)
[2018-10-13] MEDS: ASPIRIN CHEW 81 MG TABLET PO SCH (09:19)
[2018-10-13] MEDS: OLOPATADINE 0.1% OPH SOLN 5 ML BOTTLE BOTH EYES SCH ×2 (09:20→21:15)
[2018-10-13] MEDS: BISACODYL 10 MG SUPP RECTAL SCH (09:20)
[2018-10-13] MEDS: CLOTRIMAZOLE/BETAMETHASONE CREAM 15 GM TUBE TOP SCH ×2 (09:20→21:15)
[2018-10-13] MEDS: LANSOPRAZOLE ODT 30 MG TABLET NG SCH (09:21)
[2018-10-13] MEDS: methylPREDNISolone SOD SUC 40 MG/1 ML VIAL IV SCH ×2 (12:06→23:30)
[2018-10-13] MEDS: ENOXAPARIN 40 MG/0.4 ML SYRINGE SUBCUT SCH (17:16)
[2018-10-13] MEDS: LEVOFLOXACIN INJ 750 MG in PREMIX 1 EACH IV SCH (21:14)
[2018-10-13] MEDS: HYDROmorphone 2 MG/1 ML VIAL IV PRN (23:35)
[2018-10-14] MEDS: ACYCLOVIR INJ 500 MG in SODIUM CHLORIDE 0.9% 100 ML IV SCH ×3 (03:00→17:08)
[2018-10-14] MEDS: PROPOFOL 1,000 MG/100 ML BOTTLE IV SCH ×5 (03:01→20:25)
[2018-10-14 04:26] LABS: Basophils % 0.4 % (0.0-0.8); Eosinophils # 0.1 10*3/uL (0.0-0.87); Eosinophils % 0.9 % (0.00-10.9); Hematocrit 37.6 VOL% (35.7-47.0); Hemoglobin 11.2 GM/DL (12.0-16.0); Immature Granulocytes % 3.3 %; Immature Granulocytes Absolute 0.37 #; Lymphocytes # 0.6 10*3/uL (1.4-4.0); Mean Corpuscular HGB Conc 29.8 GM/DL (32-36); Mean Corpuscular Hemoglobin 28 PG (27-34); Mean Corpuscular Volume 94.7 FL (87-102); Mean Platelet Volume 10.3 FL (9.6-12.0); Monocytes # 0.7 10*3/uL (0.11-0.8); Monocytes % 6.1 % (1.7-12.7); NRBC # 0.02 10*3/uL; Neutrophils # 9.5 10*3/uL (1.4-7.4); Neutrophils % 84.3 % (38.7-73.9); Platelet Count 305 T/CUMM (130-400); Red Blood Count 3.97 MC/CUMM (3.8-5.5); Red Cell Distribution Width 15.9 % (9.3-17.3); White Blood Count 11.2 T/CUMM (4-12)
[2018-10-14 04:41] LABS: Calcium 9.4 MG/DL (8.5-10.1); Osmolality,Calculated 309.1 MOS/KG (273-304); Potassium 3.7 MMOL/L (3.5-5.1)
[2018-10-14] MEDS: METOCLOPRAMIDE 10 MG/2 ML VIAL IV SCH ×3 (05:58→17:07)
[2018-10-14] MEDS: INSULIN LISPRO 100 UNIT/ML SUBCUT SCH ×3 (06:00→17:14)
[2018-10-14] MEDS: FORMOTEROL 20 MCG/2 ML NEB RESP TX SCH ×2 (07:44→20:48)
[2018-10-14] MEDS: BUDESONIDE 0.5 MG/2 ML NEB RESP TX SCH ×2 (07:44→20:48)
[2018-10-14] MEDS: METOPROLOL TARTRATE 25 MG TABLET PER TUBE SCH ×2 (08:12→20:59)
[2018-10-14] MEDS: OLOPATADINE 0.1% OPH SOLN 5 ML BOTTLE BOTH EYES SCH ×2 (08:12→21:10)
[2018-10-14] MEDS: CLOTRIMAZOLE/BETAMETHASONE CREAM 15 GM TUBE TOP SCH ×2 (08:12→21:10)
[2018-10-14] MEDS: ASPIRIN CHEW 81 MG TABLET PO SCH (08:12)
[2018-10-14] MEDS: INSULIN GLARGINE 100 UNIT/ML SUBCUT SCH ×2 (08:12→20:59)
[2018-10-14] MEDS: clonazePAM 0.5 MG TABLET PO PRN (08:12)
[2018-10-14] MEDS: BISACODYL 10 MG SUPP RECTAL SCH (08:12)
[2018-10-14] MEDS: CALCIUM (CARBONATE)/VITAMIN D 600 MG-400 UNIT TABLET PO SCH (08:12)
[2018-10-14] MEDS: LANSOPRAZOLE ODT 30 MG TABLET NG SCH (08:12)
[2018-10-14 12:26] LABS: ABG Oxygen Saturation 94.3 % (95-100); ABG PH 7.343 (7.35-7.45); ABG PO2 73.7 MM HG (80-95); Allen Test Positive; Pt O2 Delivery Device Ventilator
[2018-10-14] MEDS: methylPREDNISolone SOD SUC 40 MG/1 ML VIAL IV SCH (14:00)
[2018-10-14] MEDS: ENOXAPARIN 40 MG/0.4 ML SYRINGE SUBCUT SCH (17:07)
[2018-10-14] MEDS: HYDROmorphone 2 MG/1 ML VIAL IV PRN (17:18)
[2018-10-14] MEDS: DORNASE ALFA 2.5 MG/2.5 ML VIAL RESP TX SCH (20:48)
[2018-10-14] MEDS: LEVOFLOXACIN INJ 750 MG in PREMIX 1 EACH IV SCH (20:59)
[2018-10-15] MEDS: methylPREDNISolone SOD SUC 40 MG/1 ML VIAL IV SCH ×3 (00:20→22:00)
[2018-10-15] MEDS: METOCLOPRAMIDE 10 MG/2 ML VIAL IV SCH ×5 (00:23→23:27)
[2018-10-15] MEDS: INSULIN LISPRO 100 UNIT/ML SUBCUT SCH ×5 (00:31→23:25)
[2018-10-15] MEDS: ACYCLOVIR INJ 500 MG in SODIUM CHLORIDE 0.9% 100 ML IV SCH ×3 (01:28→17:28)
[2018-10-15] MEDS: HYDROmorphone 2 MG/1 ML VIAL IV PRN ×3 (01:31→23:25)
[2018-10-15] MEDS: PROPOFOL 1,000 MG/100 ML BOTTLE IV SCH ×2 (03:22→05:03)
[2018-10-15 03:30] LABS: ABG Base Excess 2.4 MMOL/L (-2.5-2.5); ABG HCO3 26.5 MMOL/L (20-26); ABG Oxygen Saturation 92.2 % (95-100); ABG PCO2 58.5 MM HG (35-48); ABG PH 7.315 (7.35-7.45); ABG PO2 71.3 MM HG (80-95); ABG TCO2 27.4 MMOL/L (23-27); Allen Test Positive; Pt O2 Delivery Device Ventilator
[2018-10-15 04:04] LABS: Prealbumin 16.1 MG/DL (20-40)
[2018-10-15] MEDS: BUDESONIDE 0.5 MG/2 ML NEB RESP TX SCH ×2 (08:25→19:44)
[2018-10-15] MEDS: FORMOTEROL 20 MCG/2 ML NEB RESP TX SCH ×2 (08:25→19:44)
[2018-10-15] MEDS: DORNASE ALFA 2.5 MG/2.5 ML VIAL RESP TX SCH ×2 (08:25→19:44)
[2018-10-15] MEDS: INSULIN GLARGINE 100 UNIT/ML SUBCUT SCH ×2 (08:48→20:30)
[2018-10-15] MEDS: ASPIRIN CHEW 81 MG TABLET PO SCH (08:49)
[2018-10-15] MEDS: CALCIUM (CARBONATE)/VITAMIN D 600 MG-400 UNIT TABLET PO SCH (08:49)
[2018-10-15] MEDS: BISACODYL 10 MG SUPP RECTAL SCH (08:49)
[2018-10-15] MEDS: CLOTRIMAZOLE/BETAMETHASONE CREAM 15 GM TUBE TOP SCH ×2 (08:49→20:31)
[2018-10-15] MEDS: LANSOPRAZOLE ODT 30 MG TABLET NG SCH (08:49)
[2018-10-15] MEDS: OLOPATADINE 0.1% OPH SOLN 5 ML BOTTLE BOTH EYES SCH ×2 (08:49→20:31)
[2018-10-15] MEDS: clonazePAM 0.5 MG TABLET PO PRN ×2 (08:49→20:30)
[2018-10-15] MEDS: METOPROLOL TARTRATE 25 MG TABLET PER TUBE SCH ×2 (08:49→20:30)
[2018-10-15] MEDS: ENOXAPARIN 40 MG/0.4 ML SYRINGE SUBCUT SCH (15:35)
[2018-10-15] MEDS: COLLAGENASE OINT 30 GM TUBE TOP SCH (15:35)
[2018-10-15] MEDS: FUROSEMIDE 20 MG/2 ML VIAL IV SCH ×2 (15:36→22:03)
[2018-10-15] MEDS: LEVOFLOXACIN INJ 750 MG in PREMIX 1 EACH IV SCH (20:30)
[2018-10-16] MEDS: ACYCLOVIR INJ 500 MG in SODIUM CHLORIDE 0.9% 100 ML IV SCH ×3 (01:10→18:16)
[2018-10-16] MEDS: HYDROmorphone 2 MG/1 ML VIAL IV PRN ×3 (03:32→23:32)
[2018-10-16 04:21] LABS: ABG Base Excess 4.8 MMOL/L (-2.5-2.5); ABG HCO3 31.6 MMOL/L (20-26); ABG Oxygen Saturation 95.2 % (95-100); ABG PCO2 57.8 MM HG (35-48); ABG PH 7.356 (7.35-7.45); ABG PO2 79.4 MM HG (80-95); ABG TCO2 33.4 MMOL/L (23-27); Allen Test Positive; Pt O2 Delivery Device Ventilator
[2018-10-16] MEDS: PROPOFOL 1,000 MG/100 ML BOTTLE IV SCH (04:40)
[2018-10-16] MEDS: METOCLOPRAMIDE 10 MG/2 ML VIAL IV SCH ×4 (05:50→23:33)
[2018-10-16] MEDS: FUROSEMIDE 20 MG/2 ML VIAL IV SCH ×3 (05:54→21:36)
[2018-10-16] MEDS: INSULIN LISPRO 100 UNIT/ML SUBCUT SCH ×3 (06:03→18:22)
[2018-10-16 06:10] LABS: Basophils % 0.3 % (0.0-0.8); Eosinophils % 0.3 % (0.00-10.9); Hematocrit 35.7 VOL% (35.7-47.0); Hemoglobin 10.8 GM/DL (12.0-16.0); Immature Granulocytes % 3.9 %; Immature Granulocytes Absolute 0.48 #; Lymphocytes # 0.8 10*3/uL (1.4-4.0); Lymphocytes % 6.6 % (21.3-54.2); Mean Corpuscular HGB Conc 30.3 GM/DL (32-36); Mean Corpuscular Hemoglobin 29 PG (27-34); Mean Corpuscular Volume 95.5 FL (87-102); Mean Platelet Volume 10.6 FL (9.6-12.0); Monocytes # 0.7 10*3/uL (0.11-0.8); Monocytes % 5.5 % (1.7-12.7); NRBC # 0.03 10*3/uL; Neutrophils # 10.2 10*3/uL (1.4-7.4); Neutrophils % 83.4 % (38.7-73.9); Platelet Count 353 T/CUMM (130-400); Red Blood Count 3.74 MC/CUMM (3.8-5.5); Red Cell Distribution Width 16.3 % (9.3-17.3); White Blood Count 12.3 T/CUMM (4-12)
[2018-10-16 06:46] LABS: Albumin 1.7 G/DL (3.4-5.0); Bilirubin,Total 0.4 MG/DL (0.2-1.0); Calcium 8.8 MG/DL (8.5-10.1); Osmolality,Calculated 307.4 MOS/KG (273-304); Potassium 3.6 MMOL/L (3.5-5.1); Total Protein 6.3 G/DL (6.4-8.3)
[2018-10-16] MEDS: BUDESONIDE 0.5 MG/2 ML NEB RESP TX SCH ×2 (07:05→19:50)
[2018-10-16] MEDS: FORMOTEROL 20 MCG/2 ML NEB RESP TX SCH ×2 (07:05→19:50)
[2018-10-16] MEDS: DORNASE ALFA 2.5 MG/2.5 ML VIAL RESP TX SCH ×2 (07:16→19:50)
[2018-10-16] MEDS: CALCIUM (CARBONATE)/VITAMIN D 600 MG-400 UNIT TABLET PO SCH (09:25)
[2018-10-16] MEDS: LANSOPRAZOLE ODT 30 MG TABLET NG SCH (09:25)
[2018-10-16] MEDS: METOPROLOL TARTRATE 25 MG TABLET PER TUBE SCH ×2 (09:25→21:37)
[2018-10-16] MEDS: POTASSIUM CHLORIDE 20 MEQ/15 ML UDCUP PER TUBE PRN ×2 (09:25→18:21)
[2018-10-16] MEDS: clonazePAM 0.5 MG TABLET PO PRN ×2 (09:25→22:00)
[2018-10-16] MEDS: COLLAGENASE OINT 30 GM TUBE TOP SCH (09:26)
[2018-10-16] MEDS: OLOPATADINE 0.1% OPH SOLN 5 ML BOTTLE BOTH EYES SCH ×2 (09:26→21:39)
[2018-10-16] MEDS: INSULIN GLARGINE 100 UNIT/ML SUBCUT SCH ×2 (09:26→21:37)
[2018-10-16] MEDS: ASPIRIN CHEW 81 MG TABLET PO SCH (09:26)
[2018-10-16] MEDS: CLOTRIMAZOLE/BETAMETHASONE CREAM 15 GM TUBE TOP SCH ×2 (09:26→21:39)
[2018-10-16] MEDS: BISACODYL 10 MG SUPP RECTAL SCH (09:26)
[2018-10-16] MEDS: methylPREDNISolone SOD SUC 40 MG/1 ML VIAL IV SCH ×2 (11:54→23:33)
[2018-10-16] MEDS: ENOXAPARIN 40 MG/0.4 ML SYRINGE SUBCUT SCH (15:42)
[2018-10-16] MEDS: LEVOFLOXACIN INJ 750 MG in PREMIX 1 EACH IV SCH (21:38)
[2018-10-17] MEDS: INSULIN LISPRO 100 UNIT/ML SUBCUT SCH ×5 (00:18→23:57)
[2018-10-17] MEDS: ACYCLOVIR INJ 500 MG in SODIUM CHLORIDE 0.9% 100 ML IV SCH ×3 (02:51→17:48)
[2018-10-17] MEDS: PROPOFOL 1,000 MG/100 ML BOTTLE IV SCH (04:22)
[2018-10-17 04:24] LABS: ABG Base Excess 3.9 MMOL/L (-2.5-2.5); ABG HCO3 27.8 MMOL/L (20-26); ABG Oxygen Saturation 95.3 % (95-100); ABG PCO2 62.7 MM HG (35-48); ABG PH 7.316 (7.35-7.45); ABG PO2 81.3 MM HG (80-95); ABG TCO2 28.7 MMOL/L (23-27); Pt O2 Delivery Device Ventilator
[2018-10-17 05:35] LABS: Basophils % 0.2 % (0.0-0.8); Eosinophils # 0.1 10*3/uL (0.0-0.87); Eosinophils % 0.3 % (0.00-10.9); Hematocrit 36.2 VOL% (35.7-47.0); Hemoglobin 11.1 GM/DL (12.0-16.0); Immature Granulocytes % 2.3 %; Immature Granulocytes Absolute 0.35 #; Lymphocytes % 6.4 % (21.3-54.2); Mean Corpuscular HGB Conc 30.7 GM/DL (32-36); Mean Corpuscular Hemoglobin 29 PG (27-34); Mean Corpuscular Volume 93.5 FL (87-102); Mean Platelet Volume 10.2 FL (9.6-12.0); Monocytes # 0.8 10*3/uL (0.11-0.8); Monocytes % 5.4 % (1.7-12.7); NRBC # 0.02 10*3/uL; Neutrophils # 12.7 10*3/uL (1.4-7.4); Neutrophils % 85.4 % (38.7-73.9); Platelet Count 349 T/CUMM (130-400); Red Blood Count 3.87 MC/CUMM (3.8-5.5); Red Cell Distribution Width 16.3 % (9.3-17.3); White Blood Count 14.9 T/CUMM (4-12)
[2018-10-17] MEDS: METOCLOPRAMIDE 10 MG/2 ML VIAL IV SCH ×4 (05:35→23:10)
[2018-10-17] MEDS: FUROSEMIDE 20 MG/2 ML VIAL IV SCH ×3 (05:38→15:49)
[2018-10-17 06:11] LABS: Albumin 1.9 G/DL (3.4-5.0); Bilirubin,Total 0.4 MG/DL (0.2-1.0); Calcium 8.5 MG/DL (8.5-10.1); Osmolality,Calculated 303.8 MOS/KG (273-304); Potassium 4.1 MMOL/L (3.5-5.1); Total Protein 6.5 G/DL (6.4-8.3)
[2018-10-17] MEDS: FORMOTEROL 20 MCG/2 ML NEB RESP TX SCH ×2 (07:26→20:01)
[2018-10-17] MEDS: BUDESONIDE 0.5 MG/2 ML NEB RESP TX SCH ×2 (07:27→20:01)
[2018-10-17] MEDS: DORNASE ALFA 2.5 MG/2.5 ML VIAL RESP TX SCH ×2 (07:27→20:01)
[2018-10-17] MEDS: ASPIRIN CHEW 81 MG TABLET PO SCH (08:53)
[2018-10-17] MEDS: CALCIUM (CARBONATE)/VITAMIN D 600 MG-400 UNIT TABLET PO SCH (08:53)
[2018-10-17] MEDS: INSULIN GLARGINE 100 UNIT/ML SUBCUT SCH ×2 (08:53→20:23)
[2018-10-17] MEDS: OLOPATADINE 0.1% OPH SOLN 5 ML BOTTLE BOTH EYES SCH ×2 (08:53→20:23)
[2018-10-17] MEDS: CLOTRIMAZOLE/BETAMETHASONE CREAM 15 GM TUBE TOP SCH ×2 (08:53→20:23)
[2018-10-17] MEDS: LANSOPRAZOLE ODT 30 MG TABLET NG SCH (08:53)
[2018-10-17] MEDS: METOPROLOL TARTRATE 25 MG TABLET PER TUBE SCH ×2 (08:53→20:23)
[2018-10-17] MEDS: COLLAGENASE OINT 30 GM TUBE TOP SCH (08:54)
[2018-10-17] MEDS: BISACODYL 10 MG SUPP RECTAL SCH (08:54)
[2018-10-17] MEDS: methylPREDNISolone SOD SUC 40 MG/1 ML VIAL IV SCH ×2 (11:48→23:10)
[2018-10-17] MEDS: ALBUTEROL/IPRATROPIUM 3 ML NEB RESP TX SCH ×2 (12:20→20:01)
[2018-10-17] MEDS: ENOXAPARIN 40 MG/0.4 ML SYRINGE SUBCUT SCH (15:48)
[2018-10-18] MEDS: ALBUTEROL/IPRATROPIUM 3 ML NEB RESP TX SCH ×4 (00:28→20:19)
[2018-10-18] MEDS: ACYCLOVIR INJ 500 MG in SODIUM CHLORIDE 0.9% 100 ML IV SCH ×3 (02:05→18:12)
[2018-10-18 04:24] LABS: Pt O2 Delivery Device Ventilator
[2018-10-18 04:25] LABS: ABG HCO3 34.1 MMOL/L (20-26); ABG Oxygen Saturation 98.4 % (95-100); ABG PH 7.507 (7.35-7.45); ABG PO2 126.5 MM HG (80-95); ABG TCO2 35.4 MMOL/L (23-27)
[2018-10-18] MEDS: PROPOFOL 1,000 MG/100 ML BOTTLE IV SCH (04:39)
[2018-10-18] MEDS: INSULIN LISPRO 100 UNIT/ML SUBCUT SCH ×3 (06:32→18:11)
[2018-10-18] MEDS: METOCLOPRAMIDE 10 MG/2 ML VIAL IV SCH ×4 (06:32→23:21)
[2018-10-18] MEDS: FORMOTEROL 20 MCG/2 ML NEB RESP TX SCH ×2 (06:52→20:19)
[2018-10-18] MEDS: BUDESONIDE 0.5 MG/2 ML NEB RESP TX SCH ×2 (06:52→20:19)
[2018-10-18] MEDS: DORNASE ALFA 2.5 MG/2.5 ML VIAL RESP TX SCH ×2 (07:15→20:19)
[2018-10-18] MEDS: CALCIUM (CARBONATE)/VITAMIN D 600 MG-400 UNIT TABLET PO SCH (08:26)
[2018-10-18] MEDS: METOPROLOL TARTRATE 25 MG TABLET PER TUBE SCH ×2 (08:26→20:25)
[2018-10-18] MEDS: LANSOPRAZOLE ODT 30 MG TABLET NG SCH (08:26)
[2018-10-18] MEDS: INSULIN GLARGINE 100 UNIT/ML SUBCUT SCH ×2 (08:27→21:24)
[2018-10-18] MEDS: FUROSEMIDE 20 MG/2 ML VIAL IV SCH ×2 (08:27→15:55)
[2018-10-18] MEDS: ASPIRIN CHEW 81 MG TABLET PO SCH (08:27)
[2018-10-18] MEDS: COLLAGENASE OINT 30 GM TUBE TOP SCH (08:28)
[2018-10-18] MEDS: OLOPATADINE 0.1% OPH SOLN 5 ML BOTTLE BOTH EYES SCH ×2 (08:28→20:25)
[2018-10-18] MEDS: CLOTRIMAZOLE/BETAMETHASONE CREAM 15 GM TUBE TOP SCH ×2 (08:28→20:25)
[2018-10-18] MEDS: BISACODYL 10 MG SUPP RECTAL SCH (08:35)
[2018-10-18] MEDS: methylPREDNISolone SOD SUC 40 MG/1 ML VIAL IV SCH ×2 (10:26→22:49)
[2018-10-18] MEDS: ENOXAPARIN 40 MG/0.4 ML SYRINGE SUBCUT SCH (15:55)
[2018-10-19] MEDS: INSULIN LISPRO 100 UNIT/ML SUBCUT SCH ×4 (00:15→18:10)
[2018-10-19] MEDS: ALBUTEROL/IPRATROPIUM 3 ML NEB RESP TX SCH ×6 (01:23→23:30)
[2018-10-19] MEDS: ACYCLOVIR INJ 500 MG in SODIUM CHLORIDE 0.9% 100 ML IV SCH ×3 (02:44→18:11)
[2018-10-19] MEDS: clonazePAM 0.5 MG TABLET PO PRN (03:11)
[2018-10-19 04:27] LABS: ABG HCO3 34.8 MMOL/L (20-26); ABG Oxygen Saturation 97.8 % (95-100); ABG PCO2 48.4 MM HG (35-48); ABG PH 7.475 (7.35-7.45); ABG TCO2 36.3 MMOL/L (23-27); Pt O2 Delivery Device Ventilator
[2018-10-19] MEDS: PROPOFOL 1,000 MG/100 ML BOTTLE IV SCH (06:01)
[2018-10-19] MEDS: METOCLOPRAMIDE 10 MG/2 ML VIAL IV SCH ×3 (06:03→18:10)
[2018-10-19] MEDS: FORMOTEROL 20 MCG/2 ML NEB RESP TX SCH (07:48)
[2018-10-19] MEDS: DORNASE ALFA 2.5 MG/2.5 ML VIAL RESP TX SCH (07:49)
[2018-10-19] MEDS: BUDESONIDE 0.5 MG/2 ML NEB RESP TX SCH (07:49)
[2018-10-19] MEDS: ASPIRIN CHEW 81 MG TABLET PO SCH (08:43)
[2018-10-19] MEDS: FUROSEMIDE 20 MG/2 ML VIAL IV SCH ×2 (08:43→15:57)
[2018-10-19] MEDS: METOPROLOL TARTRATE 25 MG TABLET PER TUBE SCH ×2 (08:43→21:54)
[2018-10-19] MEDS: INSULIN GLARGINE 100 UNIT/ML SUBCUT SCH ×2 (08:44→21:54)
[2018-10-19] MEDS: LANSOPRAZOLE ODT 30 MG TABLET NG SCH (08:44)
[2018-10-19] MEDS: CALCIUM (CARBONATE)/VITAMIN D 600 MG-400 UNIT TABLET PO SCH (08:44)
[2018-10-19] MEDS: OLOPATADINE 0.1% OPH SOLN 5 ML BOTTLE BOTH EYES SCH ×2 (08:45→21:55)
[2018-10-19] MEDS: CLOTRIMAZOLE/BETAMETHASONE CREAM 15 GM TUBE TOP SCH ×2 (08:45→21:55)
[2018-10-19] MEDS: BISACODYL 10 MG SUPP RECTAL SCH (08:45)
[2018-10-19] MEDS: COLLAGENASE OINT 30 GM TUBE TOP SCH (08:45)
[2018-10-19 09:54] LABS: Basophils % 0.1 % (0.0-0.8); Eosinophils % 0.3 % (0.00-10.9); Hematocrit 31.3 VOL% (35.7-47.0); Hemoglobin 9.8 GM/DL (12.0-16.0); Immature Granulocytes Absolute 0.24 #; Lymphocytes % 8.3 % (21.3-54.2); Mean Corpuscular HGB Conc 31.3 GM/DL (32-36); Mean Corpuscular Hemoglobin 29 PG (27-34); Mean Corpuscular Volume 92.9 FL (87-102); Mean Platelet Volume 9.3 FL (9.6-12.0); Monocytes # 0.7 10*3/uL (0.11-0.8); Monocytes % 6.1 % (1.7-12.7); Neutrophils % 83.2 % (38.7-73.9); Platelet Count 257 T/CUMM (130-400); Red Blood Count 3.37 MC/CUMM (3.8-5.5); Red Cell Distribution Width 16.5 % (9.3-17.3)
[2018-10-19 10:22] LABS: Calcium 7.2 MG/DL (8.5-10.1); Osmolality,Calculated 311.4 MOS/KG (273-304); Potassium 2.8 MMOL/L (3.5-5.1)
[2018-10-19] MEDS: POTASSIUM CHLORIDE 20 MEQ/15 ML UDCUP PER TUBE PRN ×4 (10:45→18:43)
[2018-10-19] MEDS: HYDROmorphone 2 MG/1 ML VIAL IV PRN (10:58)
[2018-10-19] MEDS: methylPREDNISolone SOD SUC 40 MG/1 ML VIAL IV SCH (11:04)
[2018-10-19] MEDS: ENOXAPARIN 40 MG/0.4 ML SYRINGE SUBCUT SCH (15:57)
[2018-10-20] MEDS: INSULIN LISPRO 100 UNIT/ML SUBCUT SCH ×5 (00:16→23:56)
[2018-10-20] MEDS: methylPREDNISolone SOD SUC 40 MG/1 ML VIAL IV SCH ×3 (00:16→23:14)
[2018-10-20] MEDS: METOCLOPRAMIDE 10 MG/2 ML VIAL IV SCH ×5 (00:16→23:14)
[2018-10-20] MEDS: ACYCLOVIR INJ 500 MG in SODIUM CHLORIDE 0.9% 100 ML IV SCH ×3 (01:22→17:32)
[2018-10-20] MEDS: POTASSIUM CHLORIDE 20 MEQ/15 ML UDCUP PER TUBE PRN ×5 (01:33→21:40)
[2018-10-20] MEDS: PROPOFOL 1,000 MG/100 ML BOTTLE IV SCH (06:06)
[2018-10-20 06:10] LABS: Basophils % 0.2 % (0.0-0.8); Eosinophils # 0.1 10*3/uL (0.0-0.87); Eosinophils % 0.4 % (0.00-10.9); Hematocrit 35.9 VOL% (35.7-47.0); Immature Granulocytes % 1.9 %; Immature Granulocytes Absolute 0.27 #; Lymphocytes # 0.7 10*3/uL (1.4-4.0); Lymphocytes % 4.8 % (21.3-54.2); Mean Corpuscular HGB Conc 30.6 GM/DL (32-36); Mean Corpuscular Hemoglobin 29 PG (27-34); Mean Platelet Volume 10.4 FL (9.6-12.0); Monocytes # 0.6 10*3/uL (0.11-0.8); Monocytes % 4.2 % (1.7-12.7); Neutrophils # 12.8 10*3/uL (1.4-7.4); Neutrophils % 88.5 % (38.7-73.9); Platelet Count 305 T/CUMM (130-400); Red Blood Count 3.82 MC/CUMM (3.8-5.5); Red Cell Distribution Width 16.9 % (9.3-17.3); White Blood Count 14.4 T/CUMM (4-12)
[2018-10-20 06:22] LABS: Calcium 8.9 MG/DL (8.5-10.1); Osmolality,Calculated 310.7 MOS/KG (273-304); Potassium 4.7 MMOL/L (3.5-5.1)
[2018-10-20 06:28] LABS: Band Neutrophils 1 % (0-10); Hypochromasia 1+; Lymphocytes 4 % (20-55); Platelet Estimate Adequate; Segmented Neutrophils 92 % (50-85); Total Cells Counted 100
[2018-10-20 06:38] LABS: INR 0.9; PT Patient Result 10.3 SECS; Partial Thromboplastin Time < 21.0 SECS (0-40)
[2018-10-20 07:37] LABS: ABG Base Excess 4.5 MMOL/L (-2.5-2.5); ABG HCO3 28.5 MMOL/L (20-26); ABG Oxygen Saturation 97.7 % (95-100); ABG PCO2 50.1 MM HG (35-48); ABG PH 7.392 (7.35-7.45); ABG TCO2 27.2 MMOL/L (23-27); Allen Test Positive; Pt O2 Delivery Device Other
[2018-10-20] MEDS: ALBUTEROL/IPRATROPIUM 3 ML NEB RESP TX SCH ×4 (08:01→20:47)
[2018-10-20] MEDS: METOPROLOL TARTRATE 25 MG TABLET PER TUBE SCH ×2 (08:24→21:40)
[2018-10-20] MEDS: LANSOPRAZOLE ODT 30 MG TABLET NG SCH (08:24)
[2018-10-20] MEDS: INSULIN GLARGINE 100 UNIT/ML SUBCUT SCH ×2 (08:24→21:40)
[2018-10-20] MEDS: CALCIUM (CARBONATE)/VITAMIN D 600 MG-400 UNIT TABLET PO SCH (08:24)
[2018-10-20] MEDS: ASPIRIN CHEW 81 MG TABLET PO SCH (08:24)
[2018-10-20] MEDS: CLOTRIMAZOLE/BETAMETHASONE CREAM 15 GM TUBE TOP SCH ×2 (08:25→21:41)
[2018-10-20] MEDS: FUROSEMIDE 20 MG/2 ML VIAL IV SCH ×2 (08:25→17:31)
[2018-10-20] MEDS: OLOPATADINE 0.1% OPH SOLN 5 ML BOTTLE BOTH EYES SCH ×2 (08:25→21:41)
[2018-10-20] MEDS: COLLAGENASE OINT 30 GM TUBE TOP SCH (08:25)
[2018-10-20] MEDS: BISACODYL 10 MG SUPP RECTAL SCH (08:26)
[2018-10-20] MEDS: glipiZIDE 10 MG TABLET PER TUBE SCH ×2 (09:04→21:40)
[2018-10-20] MEDS: HYDROmorphone 2 MG/1 ML VIAL IV PRN (13:59)
[2018-10-20] MEDS: ENOXAPARIN 40 MG/0.4 ML SYRINGE SUBCUT SCH (17:31)
[2018-10-21] MEDS: ALBUTEROL/IPRATROPIUM 3 ML NEB RESP TX SCH ×5 (00:06→20:13)
[2018-10-21] MEDS: ACYCLOVIR INJ 500 MG in SODIUM CHLORIDE 0.9% 100 ML IV SCH ×2 (02:10→09:31)
[2018-10-21 03:56] LABS: ABG Base Excess 5.7 MMOL/L (-2.5-2.5); ABG HCO3 29.6 MMOL/L (20-26); ABG Oxygen Saturation 98.1 % (95-100); ABG PCO2 47.6 MM HG (35-48); ABG PH 7.424 (7.35-7.45); ABG TCO2 27.5 MMOL/L (23-27); Allen Test Positive; Pt O2 Delivery Device Ventilator
[2018-10-21] MEDS: PROPOFOL 1,000 MG/100 ML BOTTLE IV SCH (05:43)
[2018-10-21 05:44] LABS: Basophils % 0.2 % (0.0-0.8); Eosinophils % 0.2 % (0.00-10.9); Hemoglobin 10.6 GM/DL (12.0-16.0); Immature Granulocytes % 1.3 %; Immature Granulocytes Absolute 0.16 #; Lymphocytes # 0.6 10*3/uL (1.4-4.0); Lymphocytes % 4.8 % (21.3-54.2); Mean Corpuscular HGB Conc 30.3 GM/DL (32-36); Mean Corpuscular Hemoglobin 29 PG (27-34); Mean Corpuscular Volume 94.1 FL (87-102); Mean Platelet Volume 10.6 FL (9.6-12.0); Monocytes # 0.6 10*3/uL (0.11-0.8); Monocytes % 4.6 % (1.7-12.7); Neutrophils # 10.7 10*3/uL (1.4-7.4); Neutrophils % 88.9 % (38.7-73.9); Platelet Count 276 T/CUMM (130-400); Red Blood Count 3.72 MC/CUMM (3.8-5.5); White Blood Count 12.1 T/CUMM (4-12)
[2018-10-21 06:02] LABS: Calcium 8.6 MG/DL (8.5-10.1); Osmolality,Calculated 316.6 MOS/KG (273-304); Potassium 4.1 MMOL/L (3.5-5.1)
[2018-10-21 06:12] VITALS: BP 141/69
[2018-10-21 06:26] LABS: Band Neutrophils 2 % (0-10); Hypochromasia 1+; Lymphocytes 4 % (20-55); Myelocytes 2 %; Ovalocytes Slight; Platelet Estimate Adequate; Segmented Neutrophils 91 % (50-85); Total Cells Counted 100
[2018-10-21] MEDS: INSULIN LISPRO 100 UNIT/ML SUBCUT SCH ×4 (06:40→23:31)
[2018-10-21] MEDS: METOCLOPRAMIDE 10 MG/2 ML VIAL IV SCH ×4 (06:41→23:31)
[2018-10-21] MEDS ORDERED: FUROSEMIDE 20 MG/2 ML VIAL IV SCH ×2 (09:14→09:15)
[2018-10-21] MEDS: INSULIN GLARGINE 100 UNIT/ML SUBCUT SCH ×2 (09:25→21:50)
[2018-10-21] MEDS: LANSOPRAZOLE ODT 30 MG TABLET NG SCH (09:28)
[2018-10-21] MEDS: ASPIRIN CHEW 81 MG TABLET PO SCH (09:28)
[2018-10-21] MEDS: CALCIUM (CARBONATE)/VITAMIN D 600 MG-400 UNIT TABLET PO SCH (09:28)
[2018-10-21] MEDS: METOPROLOL TARTRATE 25 MG TABLET PER TUBE SCH ×2 (09:28→21:51)
[2018-10-21] MEDS: glipiZIDE 10 MG TABLET PER TUBE SCH ×2 (09:28→21:51)
[2018-10-21] MEDS: BISACODYL 10 MG SUPP RECTAL SCH (09:29)
[2018-10-21] MEDS: CLOTRIMAZOLE/BETAMETHASONE CREAM 15 GM TUBE TOP SCH ×2 (09:29→21:58)
[2018-10-21] MEDS: OLOPATADINE 0.1% OPH SOLN 5 ML BOTTLE BOTH EYES SCH ×2 (09:29→21:58)
[2018-10-21] MEDS: COLLAGENASE OINT 30 GM TUBE TOP SCH (09:29)
[2018-10-21] MEDS: FUROSEMIDE 20 MG/2 ML VIAL IV SCH ×2 (10:30→17:27)
[2018-10-21 11:43] LABS: ABG Base Excess 9.8 MMOL/L (-2.5-2.5); ABG HCO3 33.5 MMOL/L (20-26); ABG Oxygen Saturation 95.2 % (95-100); ABG PCO2 44.8 MM HG (35-48); ABG PH 7.494 (7.35-7.45); ABG PO2 69.8 MM HG (80-95); ABG TCO2 30.1 MMOL/L (23-27); Allen Test Positive; Pt O2 Delivery Device Venturi Mask
[2018-10-21] MEDS: methylPREDNISolone SOD SUC 40 MG/1 ML VIAL IV SCH ×2 (11:52→21:47)
[2018-10-21] MEDS: ENOXAPARIN 40 MG/0.4 ML SYRINGE SUBCUT SCH (17:27)
[2018-10-21] MEDS: FLUCONAZOLE 200 MG TABLET PO SCH (17:27)
[2018-10-21] MEDS: DESITIN 4OZ/NYSTATIN 15 GRAM MIXTURE PASTE TOP SCH ×2 (17:27→21:58)
[2018-10-21] MEDS ORDERED: DEXTROSE 50% 25 GM/50 ML SYRINGE IV ONE (23:24)
[2018-10-21] MEDS: DEXTROSE 50% 25 GM/50 ML VIAL IV PRN (23:30)
[2018-10-22] MEDS: ALBUTEROL/IPRATROPIUM 3 ML NEB RESP TX SCH ×5 (01:40→19:40)
[2018-10-22 03:46] LABS: ABG Base Excess 7.2 MMOL/L (-2.5-2.5); ABG HCO3 30.8 MMOL/L (20-26); ABG Oxygen Saturation 92.4 % (95-100); ABG PCO2 41.9 MM HG (35-48); ABG PH 7.482 (7.35-7.45); ABG PO2 62.4 MM HG (80-95); ABG TCO2 27.4 MMOL/L (23-27); Allen Test Positive
[2018-10-22] MEDS: METOCLOPRAMIDE 10 MG/2 ML VIAL IV SCH ×4 (06:34→23:35)
[2018-10-22 06:35] LABS: Calcium 9.3 MG/DL (8.5-10.1); Osmolality,Calculated 307.3 MOS/KG (273-304); Potassium 3.2 MMOL/L (3.5-5.1)
[2018-10-22] MEDS: INSULIN LISPRO 100 UNIT/ML SUBCUT SCH ×4 (06:35→23:54)
[2018-10-22 06:41] LABS: Prealbumin 24.1 MG/DL (20-40)
[2018-10-22] MEDS: POTASSIUM CHLORIDE 10 MEQ TABLET PO SCH ×3 (09:00→22:04)
[2018-10-22] MEDS: METOPROLOL TARTRATE 25 MG TABLET PER TUBE SCH ×2 (09:00→22:05)
[2018-10-22] MEDS ORDERED: DEXTROSE 50% 25 GM/50 ML SYRINGE IV ONE (10:02)
[2018-10-22] MEDS: DEXTROSE 50% 25 GM/50 ML VIAL IV PRN (10:05)
[2018-10-22] MEDS: FUROSEMIDE 20 MG/2 ML VIAL IV SCH ×2 (10:13→16:25)
[2018-10-22] MEDS: methylPREDNISolone SOD SUC 40 MG/1 ML VIAL IV SCH ×2 (10:14→22:06)
[2018-10-22] MEDS: COLLAGENASE OINT 30 GM TUBE TOP SCH (10:21)
[2018-10-22] MEDS: DESITIN 4OZ/NYSTATIN 15 GRAM MIXTURE PASTE TOP SCH ×2 (10:21→22:18)
[2018-10-22] MEDS: CLOTRIMAZOLE/BETAMETHASONE CREAM 15 GM TUBE TOP SCH ×2 (10:21→22:18)
[2018-10-22] MEDS: OLOPATADINE 0.1% OPH SOLN 5 ML BOTTLE BOTH EYES SCH ×2 (10:21→22:18)
[2018-10-22] MEDS: glipiZIDE 10 MG TABLET PER TUBE SCH ×2 (12:13→22:05)
[2018-10-22] MEDS: INSULIN GLARGINE 100 UNIT/ML SUBCUT SCH ×2 (12:13→22:15)
[2018-10-22] MEDS ORDERED: GLUCAGON 1 MG VIAL IM PRN (12:39)
[2018-10-22] MEDS ORDERED: DEXTROSE 50% 25 GM/50 ML VIAL IV PRN (12:39)
[2018-10-22] MEDS: BISACODYL 10 MG SUPP RECTAL SCH (15:58)
[2018-10-22] MEDS: POTASSIUM CHLORIDE 20 MEQ/15 ML UDCUP PER TUBE PRN (16:26)
[2018-10-22] MEDS: ENOXAPARIN 40 MG/0.4 ML SYRINGE SUBCUT SCH (16:26)
[2018-10-22] MEDS: LANSOPRAZOLE ODT 30 MG TABLET NG SCH (16:27)
[2018-10-22] MEDS: CALCIUM (CARBONATE)/VITAMIN D 600 MG-400 UNIT TABLET PO SCH (16:27)
[2018-10-22] MEDS: FLUCONAZOLE 200 MG TABLET PO SCH (16:27)
[2018-10-22] MEDS: ASPIRIN CHEW 81 MG TABLET PO SCH (16:28)
[2018-10-22] MEDS: clonazePAM 0.5 MG TABLET PO PRN (22:04)
[2018-10-23] MEDS: ALBUTEROL/IPRATROPIUM 3 ML NEB RESP TX SCH ×5 (04:24→19:08)
[2018-10-23 04:53] LABS: Allen Test Positive; Pt O2 Delivery Device Other
[2018-10-23 04:54] LABS: ABG Base Excess 5.8 MMOL/L (-2.5-2.5); ABG HCO3 29.5 MMOL/L (20-26); ABG Oxygen Saturation 89.9 % (95-100); ABG PO2 56.6 MM HG (80-95); ABG TCO2 25.8 MMOL/L (23-27)
[2018-10-23 04:58] LABS: Calcium 9.5 MG/DL (8.5-10.1); Osmolality,Calculated 317.1 MOS/KG (273-304); Potassium 3.6 MMOL/L (3.5-5.1)
[2018-10-23] MEDS: METOCLOPRAMIDE 10 MG/2 ML VIAL IV SCH (06:18)
[2018-10-23] MEDS: INSULIN LISPRO 100 UNIT/ML SUBCUT SCH ×4 (06:20→23:52)
[2018-10-23] MEDS: FUROSEMIDE 20 MG/2 ML VIAL IV SCH (08:26)
[2018-10-23] MEDS: glipiZIDE 10 MG TABLET PER TUBE SCH ×2 (08:27→21:33)
[2018-10-23] MEDS: LANSOPRAZOLE ODT 30 MG TABLET NG SCH (08:27)
[2018-10-23] MEDS: CALCIUM (CARBONATE)/VITAMIN D 600 MG-400 UNIT TABLET PO SCH (08:27)
[2018-10-23] MEDS: METOPROLOL TARTRATE 25 MG TABLET PER TUBE SCH ×2 (08:27→21:33)
[2018-10-23] MEDS: ASPIRIN CHEW 81 MG TABLET PO SCH (08:27)
[2018-10-23] MEDS: FLUCONAZOLE 200 MG TABLET PO SCH (08:27)
[2018-10-23] MEDS: INSULIN GLARGINE 100 UNIT/ML SUBCUT SCH ×2 (08:27→21:26)
[2018-10-23] MEDS: POTASSIUM CHLORIDE 10 MEQ TABLET PO SCH (08:27)
[2018-10-23] MEDS: COLLAGENASE OINT 30 GM TUBE TOP SCH (08:28)
[2018-10-23] MEDS: BISACODYL 10 MG SUPP RECTAL SCH (08:28)
[2018-10-23] MEDS: OLOPATADINE 0.1% OPH SOLN 5 ML BOTTLE BOTH EYES SCH ×2 (08:28→21:33)
[2018-10-23] MEDS: CLOTRIMAZOLE/BETAMETHASONE CREAM 15 GM TUBE TOP SCH ×2 (08:28→21:33)
[2018-10-23] MEDS: DESITIN 4OZ/NYSTATIN 15 GRAM MIXTURE PASTE TOP SCH ×2 (08:41→21:33)
[2018-10-23] MEDS: methylPREDNISolone SOD SUC 40 MG/1 ML VIAL IV SCH (08:50)
[2018-10-23 10:46] LABS: Free T4 (Free Thyroxine) 2.06 NG/DL (0.76-1.46); Thyroid Stimulating Hormone 0.849 uIU/ml (0.358-3.74)
[2018-10-23] MEDS: ENOXAPARIN 40 MG/0.4 ML SYRINGE SUBCUT SCH (16:11)
[2018-10-23] MEDS: POTASSIUM CHLORIDE 20 MEQ/15 ML UDCUP PER TUBE SCH ×2 (16:11→21:33)
[2018-10-23] MEDS ORDERED: SODIUM CHLORIDE 0.45% 500 ML IV ONE (16:21)
[2018-10-24] MEDS: ALBUTEROL/IPRATROPIUM 3 ML NEB RESP TX SCH ×5 (01:12→19:10)
[2018-10-24 03:58] LABS: ABG Base Excess 5.9 MMOL/L (-2.5-2.5); ABG HCO3 29.6 MMOL/L (20-26); ABG Oxygen Saturation 90.5 % (95-100); ABG PCO2 38.7 MM HG (35-48); ABG PH 7.491 (7.35-7.45); ABG PO2 57.8 MM HG (80-95); ABG TCO2 25.9 MMOL/L (23-27); Allen Test Positive; Pt O2 Delivery Device BIPAP
[2018-10-24 05:28] LABS: Basophils % 0.2 % (0.0-0.8); Eosinophils # 0.3 10*3/uL (0.0-0.87); Eosinophils % 1.8 % (0.00-10.9); Hematocrit 38.8 VOL% (35.7-47.0); Hemoglobin 11.9 GM/DL (12.0-16.0); Immature Granulocytes Absolute 0.18 #; Lymphocytes # 1.6 10*3/uL (1.4-4.0); Mean Corpuscular HGB Conc 30.7 GM/DL (32-36); Mean Corpuscular Hemoglobin 29 PG (27-34); Mean Corpuscular Volume 95.3 FL (87-102); Mean Platelet Volume 10.8 FL (9.6-12.0); Monocytes # 1.2 10*3/uL (0.11-0.8); Monocytes % 6.7 % (1.7-12.7); NRBC # 0.07 10*3/uL; Neutrophils # 14.2 10*3/uL (1.4-7.4); Neutrophils % 81.3 % (38.7-73.9); Platelet Count 312 T/CUMM (130-400); Red Blood Count 4.07 MC/CUMM (3.8-5.5); Red Cell Distribution Width 18.1 % (9.3-17.3); White Blood Count 17.4 T/CUMM (4-12)
[2018-10-24 05:49] LABS: Calcium 9.4 MG/DL (8.5-10.1); Osmolality,Calculated 321.6 MOS/KG (273-304); Potassium 3.3 MMOL/L (3.5-5.1)
[2018-10-24] MEDS: INSULIN LISPRO 100 UNIT/ML SUBCUT SCH ×4 (05:59→23:36)
[2018-10-24] MEDS: glipiZIDE 10 MG TABLET PER TUBE SCH (08:28)
[2018-10-24] MEDS: LANSOPRAZOLE ODT 30 MG TABLET NG SCH (08:28)
[2018-10-24] MEDS: METOPROLOL TARTRATE 25 MG TABLET PER TUBE SCH ×2 (08:28→20:18)
[2018-10-24] MEDS: FLUCONAZOLE 200 MG TABLET PO SCH (08:28)
[2018-10-24] MEDS: CALCIUM (CARBONATE)/VITAMIN D 600 MG-400 UNIT TABLET PO SCH (08:29)
[2018-10-24] MEDS: ASPIRIN CHEW 81 MG TABLET PO SCH (08:29)
[2018-10-24] MEDS: predniSONE 20 MG TABLET PER TUBE SCH (08:29)
[2018-10-24] MEDS: CLOTRIMAZOLE/BETAMETHASONE CREAM 15 GM TUBE TOP SCH ×2 (08:30→20:19)
[2018-10-24] MEDS: COLLAGENASE OINT 30 GM TUBE TOP SCH (08:30)
[2018-10-24] MEDS: OLOPATADINE 0.1% OPH SOLN 5 ML BOTTLE BOTH EYES SCH ×2 (08:30→20:19)
[2018-10-24] MEDS: DESITIN 4OZ/NYSTATIN 15 GRAM MIXTURE PASTE TOP SCH ×2 (08:30→20:19)
[2018-10-24] MEDS: POTASSIUM CHLORIDE 20 MEQ/15 ML UDCUP PER TUBE SCH ×3 (08:30→20:18)
[2018-10-24] MEDS: DEXTROSE 50% 25 GM/50 ML VIAL IV PRN (08:45)
[2018-10-24] MEDS: INSULIN GLARGINE 100 UNIT/ML SUBCUT SCH (08:48)
[2018-10-24] MEDS: BISACODYL 10 MG SUPP RECTAL SCH (08:48)
[2018-10-24] MEDS ORDERED: INSULIN GLARGINE 100 UNIT/ML SUBCUT SCH (10:29)
[2018-10-24] MEDS ORDERED: SODIUM CHLORIDE 23.4% CONC INJ 38.5 MEQ in STERILE WATER INJ 1,000 ML IV SCH (11:00)
[2018-10-24] MEDS: ENOXAPARIN 40 MG/0.4 ML SYRINGE SUBCUT SCH (15:29)
[2018-10-25 03:36] LABS: Basophils % 0.2 % (0.0-0.8); Eosinophils # 0.9 10*3/uL (0.0-0.87); Eosinophils % 6.3 % (0.00-10.9); Hematocrit 33.7 VOL% (35.7-47.0); Hemoglobin 10.3 GM/DL (12.0-16.0); Immature Granulocytes % 1.2 %; Immature Granulocytes Absolute 0.17 #; Lymphocytes # 1.4 10*3/uL (1.4-4.0); Lymphocytes % 10.6 % (21.3-54.2); Mean Corpuscular HGB Conc 30.6 GM/DL (32-36); Mean Corpuscular Hemoglobin 29 PG (27-34); Mean Corpuscular Volume 96.3 FL (87-102); Mean Platelet Volume 10.7 FL (9.6-12.0); Monocytes # 0.8 10*3/uL (0.11-0.8); NRBC # 0.04 10*3/uL; Neutrophils # 10.3 10*3/uL (1.4-7.4); Neutrophils % 75.7 % (38.7-73.9); Platelet Count 251 T/CUMM (130-400); Red Cell Distribution Width 17.9 % (9.3-17.3); White Blood Count 13.6 T/CUMM (4-12)
[2018-10-25 04:04] LABS: Calcium 8.4 MG/DL (8.5-10.1); Osmolality,Calculated 304.4 MOS/KG (273-304); Potassium 3.8 MMOL/L (3.5-5.1)
[2018-10-25 04:13] LABS: ABG Base Excess 4.6 MMOL/L (-2.5-2.5); ABG HCO3 28.9 MMOL/L (20-26); ABG Oxygen Saturation 98.2 % (95-100); ABG PH 7.456 (7.35-7.45); ABG TCO2 30.2 MMOL/L (23-27); Allen Test Positive; Pt O2 Delivery Device CPAP
[2018-10-25] MEDS: ALBUTEROL/IPRATROPIUM 3 ML NEB RESP TX SCH ×5 (05:43→19:50)
[2018-10-25] MEDS: DEXTROSE 50% 25 GM/50 ML VIAL IV PRN (06:04)
[2018-10-25] MEDS: INSULIN LISPRO 100 UNIT/ML SUBCUT SCH ×3 (06:04→17:09)
[2018-10-25] MEDS: ASPIRIN CHEW 81 MG TABLET PO SCH (08:18)
[2018-10-25] MEDS: FLUCONAZOLE 200 MG TABLET PO SCH (08:18)
[2018-10-25] MEDS: BISACODYL 10 MG SUPP RECTAL SCH (08:18)
[2018-10-25] MEDS: POTASSIUM CHLORIDE 20 MEQ/15 ML UDCUP PER TUBE SCH ×3 (08:18→20:11)
[2018-10-25] MEDS: METOPROLOL TARTRATE 25 MG TABLET PER TUBE SCH ×2 (08:18→20:11)
[2018-10-25] MEDS: predniSONE 20 MG TABLET PER TUBE SCH (08:18)
[2018-10-25] MEDS: LANSOPRAZOLE ODT 30 MG TABLET NG SCH (08:18)
[2018-10-25] MEDS: CALCIUM (CARBONATE)/VITAMIN D 600 MG-400 UNIT TABLET PO SCH (08:18)
[2018-10-25] MEDS: CLOTRIMAZOLE/BETAMETHASONE CREAM 15 GM TUBE TOP SCH ×2 (08:19→20:12)
[2018-10-25] MEDS: COLLAGENASE OINT 30 GM TUBE TOP SCH (08:19)
[2018-10-25] MEDS: DESITIN 4OZ/NYSTATIN 15 GRAM MIXTURE PASTE TOP SCH ×2 (08:19→20:12)
[2018-10-25] MEDS: OLOPATADINE 0.1% OPH SOLN 5 ML BOTTLE BOTH EYES SCH ×2 (08:28→20:11)
[2018-10-25] MEDS: INSULIN GLARGINE 100 UNIT/ML SUBCUT SCH (11:18)
[2018-10-25] MEDS: ENOXAPARIN 40 MG/0.4 ML SYRINGE SUBCUT SCH (15:05)
[2018-10-25] MEDS ORDERED: INSULIN GLARGINE 100 UNIT/ML SUBCUT SCH (16:53)
[2018-10-25] MEDS ORDERED: predniSONE 5 MG TABLET PER TUBE SCH (16:53)
[2018-10-26] MEDS: INSULIN LISPRO 100 UNIT/ML SUBCUT SCH ×3 (01:10→11:33)
[2018-10-26 03:00] LABS: ABG Base Excess 4.8 MMOL/L (-2.5-2.5); ABG HCO3 28.3 MMOL/L (20-26); ABG Oxygen Saturation 94.7 % (95-100); ABG PCO2 37.5 MM HG (35-48); ABG PH 7.495 (7.35-7.45); ABG PO2 70.9 MM HG (80-95); ABG TCO2 29.4 MMOL/L (23-27); Allen Test Positive; Pt O2 Delivery Device BIPAP
[2018-10-26 05:22] LABS: Basophils % 0.2 % (0.0-0.8); Eosinophils % 7.6 % (0.00-10.9); Hematocrit 33.3 VOL% (35.7-47.0); Hemoglobin 10.3 GM/DL (12.0-16.0); Immature Granulocytes % 1.5 %; Lymphocytes # 1.4 10*3/uL (1.4-4.0); Lymphocytes % 10.8 % (21.3-54.2); Mean Corpuscular HGB Conc 30.9 GM/DL (32-36); Mean Corpuscular Hemoglobin 30 PG (27-34); Mean Corpuscular Volume 95.7 FL (87-102); Mean Platelet Volume 10.8 FL (9.6-12.0); Monocytes # 0.9 10*3/uL (0.11-0.8); Monocytes % 6.5 % (1.7-12.7); NRBC # 0.03 10*3/uL; Neutrophils # 9.7 10*3/uL (1.4-7.4); Neutrophils % 73.4 % (38.7-73.9); Platelet Count 258 T/CUMM (130-400); Red Blood Count 3.48 MC/CUMM (3.8-5.5); Red Cell Distribution Width 17.8 % (9.3-17.3); White Blood Count 13.3 T/CUMM (4-12)
[2018-10-26 05:37] LABS: Calcium 8.4 MG/DL (8.5-10.1); Osmolality,Calculated 293.8 MOS/KG (273-304); Potassium 4.3 MMOL/L (3.5-5.1)
[2018-10-26 05:39] LABS: Prealbumin 17.5 MG/DL (20-40)
[2018-10-26] MEDS: ALBUTEROL/IPRATROPIUM 3 ML NEB RESP TX SCH ×4 (07:20→14:10)
[2018-10-26] MEDS: POTASSIUM CHLORIDE 20 MEQ/15 ML UDCUP PER TUBE SCH (09:04)
[2018-10-26] MEDS: CALCIUM (CARBONATE)/VITAMIN D 600 MG-400 UNIT TABLET PO SCH (09:04)
[2018-10-26] MEDS: FLUCONAZOLE 200 MG TABLET PO SCH (09:04)
[2018-10-26] MEDS: ASPIRIN CHEW 81 MG TABLET PO SCH (09:04)
[2018-10-26] MEDS: LANSOPRAZOLE ODT 30 MG TABLET NG SCH (09:06)
[2018-10-26] MEDS: BISACODYL 10 MG SUPP RECTAL SCH (09:06)
[2018-10-26] MEDS: METOPROLOL TARTRATE 25 MG TABLET PER TUBE SCH (09:06)
[2018-10-26] MEDS: INSULIN GLARGINE 100 UNIT/ML SUBCUT SCH (09:06)
[2018-10-26] MEDS: COLLAGENASE OINT 30 GM TUBE TOP SCH (09:07)
[2018-10-26] MEDS: DESITIN 4OZ/NYSTATIN 15 GRAM MIXTURE PASTE TOP SCH (09:07)
[2018-10-26] MEDS: OLOPATADINE 0.1% OPH SOLN 5 ML BOTTLE BOTH EYES SCH (09:07)
[2018-10-26] MEDS: CLOTRIMAZOLE/BETAMETHASONE CREAM 15 GM TUBE TOP SCH (09:07)
[2018-10-26 13:20] LABS: Apearance,Urine Slightly Hazy (Clear); Bilirubin,Urine Negative (Negative); Blood, Urine Large mg/dL (Negative); Glucose,Urine (UA) >=500 mg/dL (Negative); Ketones,Urine 5 mg/dL (Negative); Mucus,Urine Occasional /LPF (Occasional); Nitrite,Urine Negative (Negative); Protein,Urine 30 MG/DL; RBC,Urine 375 /HPF (0-4); Urine Color Yellow (Yellow); Urine Specific Gravity 1.025 (1.001-1.035); WBC,Urine 1 /HPF (0-6)
[2018-10-26] MEDS ORDERED: predniSONE 10 MG TABLET PER TUBE SCH (21:00)
== END 2018-10-26 16:42 | DRG 166 ==
LOC: EDBD → EDUNIT# → N.ED 14:55 → N.EDINP 17:16 → SUATTDRO 17:16 → N.CC 18:24
PROVIDERS: ADMIT Internal Medicine; ATTEND Internal Medicine